=== PATIENT | female | born 1970 | race Caucasian/White ===

== ENCOUNTER 2017-04-15 11:39 | Emergency (ER) | payer BC, SELFPAY ==
[2017-04-15 11:45] VITALS: BP 130/79; PULSE 87; RESP 16; TEMP 36.8; O2SAT 94; BMI 38.7
[2017-04-15 12:17] LABS: Basophils % 0.4 % (0.1-2.0); Eosinophils % 0.2 % (0.1-12.0); Hematocrit 44.1 % (37.0-47.0); Hemoglobin 14.8 g/dL (12.2-16.2); Lymphocytes # 1.9 K/mm3 (0.7-4.5); Lymphocytes % 27.9 K/mm3 (10-50); Mean Corpuscular HGB Conc 33.6 g/dL (31.8-35.4); Mean Corpuscular Hemoglobin 29.6 pg (27.0-31.2); Mean Corpuscular Volume 88.2 fl (81-99); Mean Platelet Volume 8.1 fl (7.4-10.4); Monocytes # 0.5 K/mm3 (0.1-1.0); Monocytes % 6.9 % (1.7-9.3); Neutrophils # 4.3 K/mm3 (1.8-7.8); Neutrophils % 64.5 % (37.0-80.0); Platelet Count 177 K/mm3 (142-424); Red Cell Distribution Width 13.2 % (11.5-17.5); White Blood Count 6.7 K/mm3 (4.8-10.8)
[2017-04-15 12:25] LABS: Alanine Aminotransferase 47 U/L (12-78); Albumin Level 3.5 gm/dL (3.4-5.0); Albumin/Globulin Ratio 0.9 (1.1-1.8); Alkaline Phosphatase 130 U/L (46-116); Anion Gap 13.7 mEq/L (5-15); Aspartate Amino Transferase 29 U/L (15-37); Bilirubin,Total 0.3 mg/dL (0.2-1.0); Blood Urea Nitrogen 8 mg/dL (7-18); Calcium 8.2 mg/dL (8.5-10.1); Carbon Dioxide 26 mmol/L (21.0-32.0); Chloride 105 mmol/L (98-107); Creatinine Clearance Estimated 173 mL/min (0-300); Creatinine,Serum 0.74 mg/dL (0.55-1.02); Estimated Glomerular Filt Rate 84 ml/min (>60); GFR (African American) 102 ML/MIN (>60); Globulin 3.7 gm/dl (1.3-3.2); Glucose 97 mg/dL (74-106); Potassium 3.7 mmoL/L (3.5-5.1); Sodium 141 mmol/L (136-145); Total Protein,Serum 7.2 gm/dL (6.4-8.2)
[2017-04-15 13:29] VITALS: BP 134/72; PULSE 80; RESP 18; O2SAT 97
--- NOTE | 2017-04-15 13:40 | HMH.EDWEAK ---
ED Disposition Clinical Impression: Dehydration Acute bronchitis Qualifiers: Bronchitis organism: unspecified organism Qualified Code(s): J20.9 - Acute bronchitis, unspecified Disposition: Home, Self-Care Condition on Discharge: Good Instructions: Acute Bronchitis, DI for Dehydration -- Adult, DI for Acute Bronchitis Additional Instructions: Please drink plenty of fluids, take the antibiotics prescribed as directed, follow up with PCP if not better within 3-5 days. Prescriptions: Amoxicillin/Potassium Clav [Augmentin 875-125 Tablet] 1 tab PO Q12H #20 tab Referrals: Marija Salas PA [Primary Care Provider] - Time of Disposition: 13:41 - Critical Care Critical Care Time: No Attestation: On 04/15/17, the high probability of a clinically significant, sudden or life threatening deterioration of the following system(s) required my full and direct attention, intervention and personal management. The time I documented below is in addition to time spent performing reported procedures but includes the following listed in this critical care notation. Medical Decision Making - Medical Records Medical records reviewed: Yes: I reviewed the patient's medical records. Vital Signs: 04/15/17 11:45 04/15/17 13:29 04/15/17 13:53 Temperature 98.2 F 98.3 F Temperature Source Oral Pulse Rate 95 H Pulse Rate [Right Radial] 87 80 Respiratory Rate 16 18 18 Blood Pressure 120/66 Blood Pressure [Right Arm] 130/79 134/72 Blood Pressure Mean [Right Arm] 96 92 Blood Pressure Source [Right Arm] Automatic Cuff Automatic Cuff Blood Pressure Position [Right Arm] Sitting Sitting 02 Sat by Pulse Oximetry 94 L 97 Oxygen Delivery Method Room Air Room Air Room Air - Lab Data Lab results reviewed: Yes: I reviewed the patient's lab results. Lab Results 04/15/17 12:00: WBC 6.7, RBC 5.00, Hgb 14.8, Hct 44.1, MCV 88.2, MCH 29.6, MCHC 33.6, RDW 13.2, Plt Count 177, MPV 8.1, Neut % (Auto) 64.5, Lymph % (Auto) 27.9, Latimer % (Auto) 6.9, Eos % (Auto) 0.2, Baso % (Auto) 0.4, Neut # (Auto) 4.3, Lymph # (Auto) 1.9, Latimer # (Auto) 0.5, Eos # (Auto) 0.0, Baso # (Auto) 0.0 04/15/17 12:00: Sodium 141, Potassium 3.7, Chloride 105, Carbon Dioxide 26, Anion Gap 13.7, BUN 8, Creatinine 0.74, Estimated Creat Clear 173, Estimated GFR 84, Est GFR ( Amer) 102, Glucose 97, Calcium 8.2 L, Total Bilirubin 0.3, AST 29, ALT 47, Alkaline Phosphatase 130 H, Total Protein 7.2, Albumin 3.5, Globulin 3.7 H, Albumin/Globulin Ratio 0.9 L Result diagrams: 04/15/17 12:00 04/15/17 12:00 Orders (Tests/Meds): ED MEDICATIONS Discontinued Medications Generic Name Dose Route Start Last Admin Trade Name Freq PRN Reason Stop Dose Admin Sodium Chloride 1,000 mls @ 999 mls/hr 04/15/17 12:00 04/15/17 12:02 Sod Chlor 0.9% 1000ml Bag IV 04/15/17 13:00 999 mls/hr .Q1H1M [facility] Administration - Luke Inquiry Pt receiving controlled substance: No - Reevaluation(s) Time: 13:30 Reevaluation #1: On reevaluation patient appears medically stable, clinically improving additional complaints. Patient to follow-up with PCP if not better, and increase her oral fluid intake. Weakness HPI - General Chief complaint: Weakness Stated complaint: dehydration Romelia Sent to ER Mode of Arrival: Family Vehicle Limitations: No Limitations Description of Symptoms (Recalled from ER Triage Doc. by RN): pt states she is weak and tired. pt sent from [facility] ap[facility] office d/t weakness and possible dehydration. pt flu and strep swab were negative. - History of Present Illness HPI Narrative: Sent by PCP to the emergency room to receive IV fluids, as it was believe patient could be dehydrated. Patient has very vague complaints, sinus pressure, congestion, nonproductive cough, etc. MD Complaint: generalized weakness Onset (ago): day(s) (2) Duration: intermittent - Related Data Previous Rx's Medication Instructions Recorded Amoxicil
[2017-04-15 13:53] VITALS: BP 120/66; PULSE 95; RESP 18; TEMP 36.8; O2SAT 96
== END 2017-04-15 13:54 | disposition home or self-care (01) ==
PROVIDERS: Emergency Provider Emergency Medicine; Family Provider Emergency Medicine; PCP Physician Assistant
DX: E86.0 Dehydration (principal); J20.9 Acute bronchitis, unspecified; K21.9 Gastro-esophageal reflux disease without esophagitis
CPT/HCPCS: 80053; 85025; 96365; 96366; 99282

== ENCOUNTER → 2018-04-22 16:09 | Outpatient (CLI) | payer BC, SELFPAY ==
--- NOTE | 2018-04-22 16:12 | MM_ITS ---
MM Dig screening mamm BI w/CAD CAD Screening COMPARISON: Digital mammograms with CAD 12/19/2015 INDICATION: There is no personal or family history of breast cancer TECHNIQUE: Standard CC and MLO images were obtained. R2 CAD reviewed. FINDINGS: Moderate scattered fibroglandular densities are seen in the central portions of both breast and the findings are bilateral and symmetrical. There is a stable nodular density near the axillary tail left breast likely a low-lying intramammary node. There is no new or suspicious lesion in either breast and there are no suspicious microcalcifications. There are multiple small nodes in both axilla. IMPRESSION: Fibrofatty parenchyma no suspicious lesion seen BI-RADS Category: 2 Benign Finding(s) RECOMMENDED FOLLOW-UP: 1YR - 1 YEAR FOLLOW-UP (A letter has been sent to the patient regarding results of the study.)
== END ==
PROVIDERS: PCP Nurse Practitioner Family; Visit Provider Nurse Practitioner Family
DX: Z12.31 Encounter for screening mammogram for malignant neoplasm of breast (principal)
CPT/HCPCS: 77067

== ENCOUNTER → 2018-10-26 19:35 | Outpatient (CLI) | payer BC, SELFPAY ==
--- NOTE | 2018-10-26 20:05 | XR_ITS ---
PROCEDURE: XR LUMBAR SPINE 2-3V CLINICAL INDICATION: BACK PAIN COMPARISON: No exams were available for comparison FINDINGS: Normal alignment. No fracture or dislocation. Mild degenerative disc disease L5-S1 IMPRESSION: Degenerative disc disease L5-S1 Dictated by: Yong Valdez MD 10/27/2018 04:37 Signed by: <Electronically signed by Yong Valdez MD in [place]> 10/27/2018 04:37
--- NOTE | 2018-10-26 20:05 | XR_ITS ---
PROCEDURE: XR HIP RT 2-3V W/PELVIS CLINICAL INDICATION: RIGHT HIP PAIN COMPARISON: No exams were available for comparison FINDINGS: There is a well-circumscribed lucency is present through the roof of the acetabulum posteriorly and may be due to ununited ossification center. The joint space is well preserved. No lytic or blastic change. No significant degenerative change. IMPRESSION: No definite acute finding. 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
--- NOTE | 2018-10-26 20:05 | XR_ITS ---
PROCEDURE: XR THORACIC SPINE 3V CLINICAL INDICATION: BACK PAIN COMPARISON: No exams were available for comparison FINDINGS: Normal alignment. No fracture or dislocation. There is mild degenerative disc disease in the midthoracic spine. No fracture or dislocation. No lytic or blastic change IMPRESSION: Degenerative changes midthoracic spine Dictated by: Yong Valdez MD 10/27/2018 04:38 Signed by: <Electronically signed by Yong Valdez MD in [facility]> 10/27/2018 04:38
== END ==
LOC: RAD 19:36
PROVIDERS: PCP Emergency Medicine; Visit Provider Nurse Practitioner Family
DX: M54.5 Low back pain (principal); M54.6 Pain in thoracic spine; M25.511 Pain in right shoulder
CPT/HCPCS: 72072; 72100; 73502

== ENCOUNTER 2021-03-10 10:38 | Emergency (ER) | payer BC, SELFPAY ==
[2021-03-10 12:02] VITALS: BP 146/104; PULSE 70; RESP 18; TEMP 36.7; O2SAT 98; BMI 36.5
--- NOTE | 2021-03-10 12:11 | CA_ITS ---
FINAL REPORT TECHNIQUE: extremity venous duplex was performed with augmentation and compression. CLINICAL HISTORY: leg pain/swelling. Patient denies trauma. Distal left leg and calf have been hurting since Wednesday. smoker and family history of DVT and PE. FINDINGS: Proper flow is seen throughout the deep venous system. There is no evidence of deep venous thrombosis. IMPRESSION: No evidence of deep vein thrombosis within the left lower extremity. Reviewed, Interpreted and Dictated by Vignesh Oh MD Transcribed by Leatha Sethi Authenticated by Vignesh Oh MD on 03/10/2021 02:19:49 PM [facility]
--- NOTE | 2021-03-10 13:09 | HMH.EDUTC ---
[facility] [place] Clinical Impression: Cellulitis Qualifiers: Site of cellulitis: extremity Site of cellulitis of extremity: lower extremity Laterality: left Qualified Code(s): L03.116 - Cellulitis of left lower limb Disposition: Home, Self-Care Condition on Discharge: Good Instructions: DI for Cellulitis -- Adult, Cellulitis, Cephalexin Additional Instructions: Take medication as prescribed Follow up with Family Doctor if symptoms continued or worsen Return if needed Straight to ER if any life threatening symptoms Prescriptions: cephALEXin [cephALEXin 500mg capsule*] 500 mg PO Q6H 7 Days #28 cap Transmission Status: Received by [facility] Referrals: Dhruv Tello MD [Primary Care Provider] - Forms: Work/School Release Time of Disposition: 14:00 Medical Decision Making - Luke Inquiry Pt receiving controlled substance: No Luke was queried for this patient: No Vital Signs: 03/10/21 12:02 03/10/21 14:05 Temperature 98.0 F 98.0 F Temperature Source Temporal Artery Scan Pulse Rate 70 Pulse Rate [Right Brachial] 70 Respiratory Rate 18 18 Blood Pressure 146/104 H Blood Pressure [Right Arm] 146/104 H Blood Pressure Mean [Right Arm] 118 Blood Pressure Source [Right Arm] Automatic Cuff Blood Pressure Position [Right Arm] Sitting 02 Sat by Pulse Oximetry 98 Oxygen Delivery Method Room Air - US Data US Images: Lower Extremity ED US Reviewed: Yes: I have viewed radiologist's interpretation Preliminary Findings: Normal/NAD Findings Narrative: IMPRESSION: No evidence of deep vein thrombosis within the left lower extremity. Medical Decision Narrative: out of room for Venous Doppler [facility] [place] HPI - General Stated complaint: left leg pain, possible blot clot Time Seen by Provider: 03/10/21 13:09 Mode of Arrival: Ambulatory Source of Information: Patient Limitations: No Limitations Description of Symptoms (Recalled from Triage Doc. by RN): possible blood clot. left leg warm to touch, red, swollen and has a knot HEENT Symptoms (Recalled from RN notes): No Resp Symptoms (Recalled from RN notes): No Skin Symptoms (Recalled from RN notes): Yes MS Symptoms (Recalled from RN notes): No Functional Status (Recalled from RN notes): yes - History of Present Illness Provider Complaint: Patient states that she noticed over the weekend that she had some redness to her left lower leg and felt warm to the touch States that she has continued to have redness and mild swelling to left lower leg and has a family history of DVT and wanted to get checked for blood clot - Related Data Home Medications Medication Instructions Recorded Confirmed ALPRAZolam [Xanax 0.5mg tab] 0.5 mg PO DAILYP PRN 03/10/21 03/10/21 Fluoxetine HCl [Prozac 20mg 20 mg PO DAILY 03/10/21 03/10/21 Capsule] Previous Rx's Medication Instructions Recorded cephALEXin [cephALEXin 500mg 500 mg PO Q6H 7 Days #28 cap 03/10/21 capsule*] Allergies Allergy/AdvReac Type Severity Reaction Status Date / Time No Known Allergies Allergy Verified 03/10/21 12:17 - Worker's Comp Is this a Worker's Comp case?: No Is this an [facility] Worker's Comp?: No Is this a [place] Worker's Comp?: No H History - Hepatitis A Screen Drug use history?: No High risk sexual behaviors?: No History of sexually transmitted infection?: No Currently employed?: No Childcare worker?: No Do you have indoor plumbing?: Yes Do you have electricity?: Yes Attestation statement:: This patient has been screened for Hepatitis A risk factors. I have reviewed the patient's past medical history: Yes Medical History: Reports:: Gastroesophageal Reflux Disease(GERD) Denies:: Cancer, Diabetes Mellitus Type 1, Diabetes Mellitus Type 2, MRSA Other Medical History: Reports: Arthritis Comment: Does not take Flu shot Laterality Cases: Bilateral: Tonsillectomy Amputation: No Fractures: Yes (right leg/arm) - Social History Smoking Statu
[2021-03-10 14:05] VITALS: BP 146/104; PULSE 70; RESP 18; TEMP 36.7; O2SAT 98
== END 2021-03-10 14:11 | disposition home or self-care (01) ==
PROVIDERS: Emergency Provider Nurse Practitioner; PCP Emergency Medicine
DX: L03.116 Cellulitis of left lower limb (principal); K21.9 Gastro-esophageal reflux disease without esophagitis; F17.210 Nicotine dependence, cigarettes, uncomplicated
CPT/HCPCS: 93971; 99202; G0463

== ENCOUNTER → 2022-06-30 09:31 | Outpatient (POV) | payer BC, SELFPAY | PROVIDERS: Visit Provider Dermatology | DX: Z00.00 Encounter for general adult medical examination without abnormal findings (principal) ==

== ENCOUNTER 2022-08-13 17:00 | Outpatient (RCR) | payer OTHER, SELFPAY ==
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
--- NOTE | 2022-08-11 18:02 | HMH.RHREAS ---
Rehab Reassessment Rehab OP Re-assessment Start: 08/11/22 16:52 Freq: Status: Active Protocol: Document 08/11/22 16:52 DARLENE (Rec: 08/11/22 18:01 DARLENE [id number]) E-signed By Delaney Barajas PT Rehab Re-assessment Subjective Subjective Pt reports she continues to have central low back pain R>L with intermittent numbness of the right thigh with standing /walking >10 that abolishes with rest. Pt denies distal paresthesia of the espinosa or ankle/foot. Pt reports she continues to have difficulty with driving, ADLs and sleeping due to pain. Pt reports pain at worst as 9/10 within the last week. Pt reports she only takes Gabapentin as needed but does not like to take it. Pt reports she had injections in both hips on 07/30/22 during her followup visit. Pt also reports they ordered an MRI but she has not yet received a call to schedule one. Pt reports often her back is worse after PT especially following one trial of prone mechanical traction. Pt reports she is compliant with her HEP and the piriformis stretch hurts during but helps following. Pt reports she started upper body weight lifting this past week in a reclined position which she states she is tolerating well, states she quits if the back starts to bother her. Objective Objective Notes Lumbar AROM: flex 80, 20 ext, LF 15 RLE MMT: hip flex 4-/5, knee ext5/5, knee flex 4/5, hip add /abd 4/5, ankle DF 5/5 Assessment Progress Assessment Progressing as Expected Assessment Notes Pt has attended 4 PT session including the initial evaluation. Pt has low tolerance to therapeutic
== END 2022-08-13 17:05 | disposition home or self-care (01) ==
LOC: PT 17:00
PROVIDERS: PCP Emergency Medicine; Visit Provider Emergency Medicine
DX: M54.9 Dorsalgia, unspecified (principal); M54.50 Low back pain, unspecified
CPT/HCPCS: 97010; 97012; 97014; 97110; 97140; 97163; 97164; 97530; G0283

== ENCOUNTER 2022-08-17 10:10 | Emergency (ER) | payer OTHER, SELFPAY ==
[2022-08-17 10:16] VITALS: BP 125/57; PULSE 78; RESP 16; TEMP 37.2; O2SAT 100; BMI 38.2
[2022-08-17 10:31] VITALS: BP 129/89; PULSE 68; RESP 20; O2SAT 99
--- NOTE | 2022-08-17 11:02 | CT_ITS ---
FINAL REPORT TECHNIQUE: Axial imaging of the lumbar spine was obtained without contrast. Reformatted images were also obtained and reviewed.This study was performed with techniques to keep radiation doses as low as reasonably achievable, (ALARA). Individualized dose reduction techniques using automated exposure control or adjustment of mA and/or kV according to the patient's size were employed. CLINICAL HISTORY: back pain FINDINGS: There is no acute fracture or subluxation. The vertebra are normal height. There is leftward curvature. Vacuum disc phenomenon is seen at L5-S1. Facets are properly aligned. Prevertebral soft tissues unremarkable. L1-2: Unremarkable. L2-3: Annular disc bulge. L3-4: Annular disc bulge. L4-5: Annular disc bulge with mild bilateral neural foraminal narrowing. L5-S1: Annular disc bulge and osteophytes with mild bilateral neural foraminal narrowing. IMPRESSION: No acute bony abnormality. Mild bilateral neural foraminal narrowing at L4-5 with annular disc bulges throughout. Reviewed, Interpreted and Dictated by Facundo Berger III, MD Transcribed by Thuy Knight Authenticated and [facility]
--- NOTE | 2022-08-17 11:03 | HMH.EDGENADL ---
Discharge Plan Disposition Patient Disposition: Home, Self-Care Condition: Fair Prescriptions Prescriptions: New prednisone 50 mg tablet 50 mg PO DAILY 7 Days Qty: 7 0RF No Action hydrocodone-acetaminophen 5-325 mg tablet 1 tab PO BID Qty: 60 0RF diclofenac sodium 1 % gel 2 g topical QID Qty: 100 0RF Rx Instructions: apply to single elbow, wrist or hand; for hand includes palm/fingers/back of hand lidocaine 5 % adhesive patch,medicated 1 patch topical DAILY Qty: 30 0RF Rx Instructions: leave on most painful area for up to 12 hrs alprazolam 0.5 mg tablet 0.5 mg PO BID PRN (Reason: Anxiety) Qty: 60 1RF fluoxetine [Prozac] 40 mg capsule 40 mg PO DAILY Qty: 30 1RF gabapentin 100 mg capsule 100 mg PO BID Qty: 60 1RF Referrals Follow up/Referrals: Dhruv Tello MD [Primary Care Provider] - See instructions Clinical Impressions Clinical Impression: Lumbar radicular pain Instructions Patient Instructions: DI for Low Back Pain Discharge ED Provider: Esvin Carballo General Adult [facility] General Chief complaint: Back Pain/Injury Stated complaint: BACK PAIN Time Seen by Provider: 08/17/22 10:30 Mode of Arrival: Wheelchair Source of Information: Patient Limitations: No Limitations Description of Symptoms (Recalled from ER Triage Doc. by RN): pt to the ED with chronic lumbar pain that flared up this morning on her way to work. pt reports she has had chronic lumbar pain since march and is being treated by PT at this time. pt reports the pain is a sharp shooting pain that raidates into her right hip with recent bowel incontinence a few days ago. pt denies any new injury History of Present Illness HPI narrative: This is a 52-year-old white female with history of chronic back pain who is presently getting physical therapy patient states over the course of the past 2 days her pain has gotten worse. Patient said the pain starts mostly in her right hip and radiates to her right thigh. There is no new trauma. Patient denied any saddle paresthesias any foot drop. Patient says she did have a recent incidence of bowel incontinence a few days ago. Patient normally walks with a cane but said over the course of the past day the pain was too much that she could not walk even with her cane. Related Data Previous Rx's Medication Instructions Recorded hydrocodone 5 mg-acetaminophen 325 1 tab PO BID #60 tabs 03/18/22 mg tablet alprazolam 0.5 mg tablet 0.5 mg PO BID PRN Anxiety #60 tabs 05/11/22 diclofenac sodium 1 % topical gel 2 g topical QID #100 grams 05/27/22 lidocaine 5 % topical patch 1 patch topical DAILY #30 ea 05/27/22 fluoxetine 40 mg capsule (Prozac) 40 mg PO DAILY #30 caps 06/15/22 gabapentin 100 mg capsule 100 mg PO BID #60 caps 07/30/22 prednisone 50 mg tablet 50 mg PO DAILY 7 days #7 tabs 08/17/22 Allergies Allergy/AdvReac Type Severity Reaction Status Date / Time No Known Allergies Allergy Verified 07/30/22 08:49 [facility] Disclaimer: The information contained in this section may have been updated after the patient was seen, as this information can be updated by other users. Medical History Back Pain Generalized anxiety disorder Grief at loss of child Surgical History Hx of appendectomy Tubal ligation status Social History Smoking Status: Never smoker alcohol intake: never substance use type: marijuana current occupational status: other Travel in the last 8 weeks: None number of children: 1 ROS Obtained: Yes All systems reviewed & no additional complaints except as documented Skin no rash or lesions HEENT no runny nose sore throat Pulmonary no cough or shortness of breath Cardiovascular no chest pain pressure heaviness GI no abdominal pain nausea or vomiting
--- NOTE | 2022-08-17 11:45 | PC.NURSE ---
rounded on patient, no needs at this time. Call light within reach
--- NOTE | 2022-08-17 13:43 | PC.NURSE ---
contacted rad to check on status of CT result- states Ct is locked
[2022-08-17 14:50] VITALS: BP 132/81; PULSE 76; RESP 17; TEMP 36.7; O2SAT 96
== END 2022-08-17 14:55 | disposition home or self-care (01) ==
PROVIDERS: Emergency Provider Emergency Medicine; PCP Emergency Medicine
DX: M54.16 Radiculopathy, lumbar region (principal); F41.1 Generalized anxiety disorder
CPT/HCPCS: 72131; 96372; 96374; 99284

== ENCOUNTER → 2022-08-20 15:12 | Outpatient (CLI) | payer OTHER, SELFPAY ==
--- NOTE | 2022-08-20 15:12 | MR_ITS ---
FINAL REPORT CLINICAL HISTORY: back pain. NUMBNESS IN RIGHT THIGH. RIGHT SIDED GROIN PAIN. NO RECENT INJURY OR TRAUMA FINDINGS: Multiplanar MR imaging of the lumbar spine was performed without contrast. On the sagittal T2-weighted images, disc degeneration is seen at multiple levels. There are mild endplate changes at several levels. Note is made of several hemangiomas. The vertebral alignment is normal. There is no evidence of fracture. The conus has an unremarkable appearance. T12-L1: There is no significant canal stenosis or neural foraminal narrowing. L1-2: There is no significant canal stenosis or neural foraminal narrowing. L2-3: An annular bulge is present. There is no significant canal stenosis or neural foraminal narrowing. L3-4: An annular bulge is present. There is a small central disc protrusion with mild right neural foraminal narrowing. L4-5: An annular bulge is present. There is a small central disc protrusion with mild left neural foraminal narrowing. L5-S1: An annular bulge is present. Facet arthropathy and osteophytes are present. There is mild left neural foraminal narrowing. IMPRESSION: Multilevel degenerative disc disease and spondylosis. Small central disc protrusions at L3-4 and L4-5. Reviewed, Interpreted and Dictated by Facundo Berger III, MD Transcribed by Amy Roper Authenticated and [facility]
== END ==
LOC: RAD 15:12
PROVIDERS: PCP Emergency Medicine; Visit Provider Emergency Medicine
DX: M54.9 Dorsalgia, unspecified (principal); M54.50 Low back pain, unspecified
CPT/HCPCS: 72148; 76376

== ENCOUNTER 2024-05-15 08:30 | Emergency (ER) | payer OTHER, SELFPAY ==
[2024-05-15] VITALS (12 sets, daily range): BP systolic 119–187; BP diastolic 68–146; PULSE 62–101; RESP 13–20; TEMP 36.3–36.7; O2SAT 93–99; BMI 38.0
--- NOTE | 2024-05-15 08:52 | ECG_ITS ---
APPROVED REPORT Exam: Resting ECG HR:70 bpm ECG Measurements Heart Rate 70 AXES DE 147 P 38 QRSd 94 QRS 21 QT 406 T 48 QTc 426 Conclusion SINUS RHYTHM NORMAL ECG Electronically signed by : NAI WAKEFIELD, 05/19/2024 10:22:49
--- NOTE | 2024-05-15 08:52 | XR_ITS ---
FINAL REPORT CLINICAL HISTORY: Epigastric pain, lower chest pain COMPARISON: None FINDINGS: SINGLE VIEW CHEST The heart size is within normal limits. The mediastinum is within normal limits. There are slight chronic appearing changes in the lung yee bilaterally without acute infiltrate. There is no evidence of pneumothorax. The bony thorax is intact. IMPRESSION: Chronic appearing changes in the lung yee bilaterally without acute infiltrate. Reviewed, Interpreted and Dictated by Vignesh Oh MD Transcribed by Ilda Hansen Authenticated and [facility]
--- NOTE | 2024-05-15 08:52 | CT_ITS ---
FINAL REPORT TECHNIQUE: After the administration of oral and intravenous contrast, axial images were obtained through the abdomen and pelvis by computed tomography. The study was performed with techniques to keep radiation dose as low as reasonably achievable, (ALARA). Individual dose reduction techniques using automated exposure control or adjustment of mA and/or kV according to the patient's size were employed. CLINICAL HISTORY: RUQ/epiastric abdominal pain, N/V COMPARISON: None FINDINGS: Abdomen: There is a 5 mm nodule in the right middle lobe, best seen on image #1 of series 3. Hepatomegaly is present, the liver measuring 22 centimeters in size. The gallbladder is present, with debris in the dependent portion of the gallbladder. The spleen, pancreas, adrenals and kidneys appear unremarkable. The aorta is normal in caliber. There is no free fluid or adenopathy. Pelvis: The appendix is not identified. There is mucosal thickening in the terminal ileum, that may represent the sequela of a remote infectious process, as there is little surrounding inflammatory change. Would correlate with any history of Crohn's disease. The uterus is anteverted. The urinary bladder is incompletely distended. There is no free fluid or adenopathy. IMPRESSION: Hepatomegaly as described. Mucosal thickening in the terminal ileum, that may represent a sequela of a prior infectious process. Would correlate with any history of inflammatory bowel disease. 5 mm right middle lobe nodule best seen on image 1 of series 3, recommend 1 year follow-up. Reviewed, Interpreted and Dictated by Vignesh Oh MD Transcribed by Ilda Hansen Authenticated and . [facility]
--- NOTE | 2024-05-15 08:53 | ED_ITS ---
Discharge Plan Disposition Patient Disposition: Home, Self-Care Condition: Good Prescriptions Prescriptions: New prednisone 20 mg tablet 20 mg PO BID 5 Days Qty: 10 0RF ondansetron 4 mg tablet,disintegrating 4 mg PO Q8H PRN (Reason: nausea and vomiting) 4 Days Qty: 12 0RF No Action fluoxetine 40 mg capsule 40 mg PO DAILY alprazolam 0.5 mg tablet 0.5 mg PO NEEDED PRN (Reason: anxiety ) Patient Comments: TAKE 1 TABLET BY MOUTH TWICE A DAY NEEDED FOR ANXIETY Referrals Follow up/Referrals: Lazaro Rick MD [Staff Physician] - See instructions Rah Kincaid APRN [Primary Care Provider] - See instructions Hanny Peterson APRN [Staff Physician] - See instructions Activity Restrictions/Add. Instructions Additional Instructions/Restrictions: You are being referred to a cardiac catheterization technologist, Dr. Phipps, for your chronic constipation. You are also being prescribed a course of steroids for some inflammation in your intestines. Take this as prescribed. You are also being prescribed Zofran to help with nausea and vomiting. Take this as prescribed. You are being referred to family medicine to establish care with her primary care physician. To establish appointments with both of these specialties, and call them at the numbers below. If you develop any new or worsening symptoms, or if you become concerned for your health for any reason, return to the emergency department for evaluation. There was also an incidentally found lung nodule on your CT scan. Follow-up with your primary care physician regarding this. Gastroenterology: [phone] Family medicine: [phone] Clinical Impressions Clinical Impression: Abdominal pain, Nausea & vomiting, Incidental lung nodule Stand Alone Forms Stand Alone Forms: Work/School Release Instructions Patient Instructions: DI for Acute Abdominal Pain Print Language Print Language: Wolof Discharge ED Provider: Alberto Andre Adult [facility] General Chief complaint: Abdominal Pain Stated complaint: abd pain Time Seen by Provider: 05/15/24 08:46 Mode of Arrival: Ambulatory Source of Information: Patient Description of Symptoms (Recalled from ER Triage Doc. by RN): pt presents to the er for upper abdominal pain, states it started around 2:30 this morning, states it is a constant, burning/ aching pain rating it 9/10, also reports nausea and vomiting, denies diarrhea, took zofran, tums, and pepto bismol around 2:45 and puked it all back up with no relief, hx appy History of Present Illness HPI narrative: Jemal Pabon is a 53-year-old female with a history of esophageal dysmotility, chronic back pain secondary to arthritis who presents to the emergency department for abdominal pain, nausea and vomiting. Patient states that she was in her normal state of health and then at 230 this morning was woken up with severe epigastric and right upper quadrant abdominal pain followed by multiple episodes of nonbilious nonbloody vomiting. She denies any fevers and states that nobody else has been ill. She reports that she has a history of constipation but has had normal bowel movements recently and her last bowel movement was this morning, denying any diarrhea or bloody stools or melena. She has a history of an appendectomy but no other abdominal surgeries. She denies any chest pain. She describes abdominal pain as burning. She denies any dysuria or hematuria. Related Data Home Medications ?Medication ?Instructions ?Recorded ?Confirmed alprazolam 0.5 mg tablet 0.5 mg PO NEEDED PRN anxiety 05/15/24 05/15/24 fluoxetine 40 mg capsule 40 mg PO DAILY 05/15/24 05/15/24 Previous Rx's ?Medication ?Instructions ?Recorded ondansetron 4 mg disintegrating 4 mg PO Q8H PRN nausea and 05/15/24 tablet vomiting 4 days #12 tabs prednisone 20 mg tablet 20 mg PO BID 5 days #10 tabs 05/15/24 Allergies Allergy/AdvReac Type Severity Reaction Status Date / Time sulfamethoxazole (From Allergy Hives Verified 05/15/24 08:56 Bactrim) trimethoprim (From Bactrim) Allergy Hives Verified 05/15/24 08:56 [facility] Disclaimer: The information contained in this section may have been updated after the patient was seen, as this information can be updated by other users. Medical History Back Pain Generalized anxiety disorder Grief at loss of child Surgical History Hx of appendectomy Tubal ligation status Social History Smoking Status: Current every day smoker tobacco type: cigarettes packs per day: 1 alcohol intake: never substance use type: marijuana current occupational status: other Travel in the last 8 weeks: None number of children: 1 Have you lived/traveled outside US in past 30 days?: No Contact w/someone who lives/traveled outside US past 30 days?: No Exposure to someone with infectious disease in past 14 days?: No Do you have a fever (greater than 100.4 F or 38 C)?: No Have you tested positive for COVID-19: No Exposed to someone with COVID-19 in past 14 days?: No Do you have a sore throat?: No Do you have a cough?: No Do you have any weakness?: No Do you have any diarrhea?: No Are you experiencing any unusual bleeding?: No Do you have any muscle aches/pain?: No Do you have any abdominal pain?: Yes Are you experiencing loss of taste or smell?: No Other Medical History Have you received the Flu Vaccine for this season: No Have you received the Pneumonia Vaccine: No ROS Obtained: Yes Systems reviewed as appropriate & no additional complaints except as documented Physical Exam General General appearance: alert and in no apparent distress Comment: appears uncomfortable but non-toxic Head Head exam: atraumatic Eye Eye exam: Present normal appearance ENT ENT exam: Present normal external ear exam Neck Neck exam: Present full ROM Chest Chest inspection: Present symmetric chest wall rise Respiratory Respiratory exam: Present normal lung sounds bilaterally; Absent respiratory distress Cardiovascular Cardiovascular exam: Present regular rate and normal rhythm Abdominal Exam Abdominal exam: Present soft and tenderness (Epigastric, right upper quadrant and left upper quadrant); Absent guarding Extremities Exam Extremities exam: Present normal inspection Back Exam Back exam: Present normal inspection Neurological Exam Neurological exam: Present alert and oriented X3 Psychiatric Psychiatric exam: Present normal affect Skin Skin exam: Present warm and dry Medical Decision Making Medical Records Screening: Per USPSTF and CDC recommendations, given the prevalence of disease in our region, it is our hospital?s policy to screen for HIV and viral Hepatitis for all patients aged 18 and over and those with ongoing risk factors. Luke Inquiry Pt receiving controlled substance: No Vital Signs: 05/15/24 08:46 05/15/24 09:01 05/15/24 09:15 Temperature 97.4 F L Temperature Source Oral Pulse Rate 85 69 Pulse Rate [Right Radial] 65 Respiratory Rate 18 18 Blood Pressure 173/146 H 182/137 H Blood Pressure [Right Arm] 164/106 H Blood Pressure Mean 154 Blood Pressure Mean [Right Arm] 125 Blood Pressure Source Blood Pressure Source [Right Arm] Automatic Cuff Blood Pressure Position Blood Pressure Position [Right Arm] Sitting 02 Sat by Pulse Oximetry 96 99 97 Oxygen Delivery Method Room Air Room Air Room Air 05/15/24 09:31 05/15/24 09:46 05/15/24 10:01 Temperature Temperature Source Pulse Rate 62 71 83 Pulse Rate [Right Radial] Respiratory Rate 20 13 18 Blood Pressure 187/101 H 165/99 H 152/70 H Blood Pressure [Right Arm] Blood Pressure Mean Blood Pressure Mean [Right Arm] Blood Pressure Source Blood Pressure Source [Right Arm] Blood Pressure Position Blood Pressure Position [Right Arm] 02 Sat by Pulse Oximetry 97 98 96 Oxygen Delivery Method Room Air Room Air Nasal Cannula 05/15/24 10:15 05/15/24 10:21 05/15/24 10:30 Temperature Temperature Source Pulse Rate 81 101 H 71 Pulse Rate [Right Radial] Respiratory Rate 16 16 16 Blood Pressure 139/120 H 135/70 131/68 Blood Pressure [Right Arm] Blood Pressure Mean Blood Pressure Mean [Right Arm] Blood Pressure Source Blood Pressure Source [Right Arm] Blood Pressure Position Blood Pressure Position [Right Arm] 02 Sat by Pulse Oximetry 93 L 94 L 95 Oxygen Delivery Method Room Air Room Air Room Air 05/15/24 10:45 05/15/24 11:00 05/15/24 11:20 Temperature 98.0 F Temperature Source Oral Pulse Rate 82 76 76 Pulse Rate [Right Radial] Respiratory Rate 15 16 Blood Pressure 134/71 125/69 119/94 H Blood Pressure [Right Arm] Blood Pressure Mean 83 Blood Pressure Mean [Right Arm] Blood Pressure Source Automatic Cuff Blood Pressure Source [Right Arm] Blood Pressure Position Sitting Blood Pressure Position [Right Arm] 02 Sat by Pulse Oximetry 95 96 Oxygen Delivery Method Room Air Room Air Room Air Lab Data Lab Results 05/15/24 08:36: Urine Color Yellow, Urine Appearance Clear, Urine pH 6.5, Ur Specific [place] 1.025, Urine Protein Negative, Urine Glucose (UA) Negative, Urine Ketones Negative, Urine Blood Trace A, Urine Nitrate Negative, Urine Bilirubin Negative, Urine Urobilinogen 0.2, Ur Leukocyte Esterase Negative, Urine RBC Occasional, Urine WBC None, Ur Squamous Epith Cells 5-10, Urine Bacteria Trace, Hyaline Casts Occ 05/15/24 08:44: WBC 14.9 H, RBC 5.37, Hgb 16.4 H, Hct 47.1 H, MCV 87.7, MCH 30.5, MCHC 34.8, RDW 12.7, Plt Count 470 H, MPV 9.7, Neut % (Auto) 81.9 H, Lymph % (Auto) 14.8, [place] % (Auto) 1.9, Eos % (Auto) 0.3, Baso % (Auto) 0.6, Neut # (Auto) 12.2 H, Lymph # (Auto) 2.2, [place] # (Auto) 0.3, Eos # (Auto) 0.1, Baso # (Auto) 0.1, Sodium 139, Potassium 4.2, Chloride 107, Carbon Dioxide 24, Anion Gap 12.2, BUN 15, Creatinine 0.70, Estimated Creat Clear 166, Estimated GFR 88, Est GFR ( Amer) 106, Glucose 141 H, Calcium 9.8, Total Bilirubin 0.4, AST 44 H, ALT 60, Alkaline Phosphatase 152 H, Troponin I < 0.01, Total Protein 8.2, Albumin 5.0, Globulin 3.2, Albumin/Globulin Ratio 1.6, Lipase 68, Serum HCG, Qual Negative, HCV Ab KENNY w/Rflx PCR Qn Negative, HIV Ag/Ab Combo Qual Negative 05/15/24 09:02: VBG pH 7.39, VBG pCO2 38.1, VBG pO2 29.5, VBG HCO3 22.5 L, VBG Total CO2 23.7, VBG O2 Saturation 61.0, VBG Base Excess -2.4, VBG Lactic Acid 2.4 H 05/15/24 08:44 05/15/24 08:44 Orders (Tests/Meds): ED MEDICATIONS Discontinued Medications Generic Name Dose Route Start Last Admin Trade Name Freq PRN Reason Stop Dose Admin Lactated Ringer's 1,000 mls @ 999 mls/hr 05/15/24 08:56 05/15/24 09:06 Lactated Ringer's 1000 Ml Bag IV 05/15/24 09:56 999 mls/hr .Q1H1M ONE Administration Iopamidol 75 ml 05/15/24 09:06 05/15/24 09:07 Iopamidol-370 (76%);100ml Bottle IV 05/15/24 09:07 75 ml ONCE ONE Administration Ketorolac Tromethamine 15 mg 05/15/24 09:22 05/15/24 09:27 Ketorolac 30mg/Ml Vial IV 05/15/24 09:23 15 mg ONCE ONE Administration Morphine Sulfate 4 mg 05/15/24 08:52 05/15/24 08:56 Morphine 4mg/Ml Syringe IV 05/15/24 08:53 4 mg ONCE ONE Administration Ondansetron HCl 4 mg 05/15/24 08:52 05/15/24 08:56 Ondansetron 4mg/2ml Vial IV 05/15/24 08:53 4 mg ONCE ONE Administration Sodium Chloride 10 ml 05/15/24 09:06 05/15/24 09:07 Sodium Chloride 0.9% 10ml Syr (Rad Only) IV 06/14/24 09:05 10 ml NEEDED PRN Administration Maintain IV Site ORDERS Category Date Time Status CT abdomen pelvis w con Stat Cat Scan 05/15/24 08:52 Completed CXR --portable [XR chest portable] Stat Exams 05/15/24 08:52 Completed CBC w/Auto Diff [Complete Blood Count Auto Diff] Stat Lab 05/15/24 08:44 Completed CMP [Comprehensive Metabolic Panel] Stat Lab 05/15/24 08:44 Completed HIV Combo Stat Lab 05/15/24 08:44 Completed Hepatitis C Ab Qual. W/ RFX Stat Lab 05/15/24 08:44 Completed Lipase Stat Lab 05/15/24 08:44 Completed Serum [HCG Qualitative, Serum] Stat Lab 05/15/24 08:44 Completed Troponin I Stat Lab 05/15/24 08:44 Completed UA [Urinalysis and Microscopic] Stat Lab 05/15/24 08:36 Completed VBG [Venous Blood Gas] Stat RT 05/15/24 09:02 Completed ECG Data Tracing #1: I reviewed this ECG and interpreted as documented below: EKG interpreted by me personally. Normal sinus rhythm ventricular rate of [address] elevation or depression. QTc normal at 426, [place] interval normal at 147 Medical Decision Narrative: Jemal Pabon is a 53-year-old female with a history of esophageal dysmotility, chronic back pain secondary to arthritis who presents to the emergency department for abdominal pain, nausea and vomiting. Patient states that she was in her normal state of health and then at 230 this morning was woken up with severe epigastric and right upper quadrant abdominal pain followed by multiple episodes of nonbilious nonbloody vomiting. She denies any fevers and states that nobody else has been ill. She reports that she has a history of constipation but has had normal bowel movements recently and her last bowel movement was this morning, denying any diarrhea or bloody stools or melena. She has a history of an appendectomy but no other abdominal surgeries. She denies any chest pain. She describes abdominal pain as burning. She reports occasional alcohol use but is not drank recently. She denies any weight loss medication she denies any dysuria or hematuria. On arrival, patient is hypertensive with blood pressure 182/37, heart rate within normal limits, breathing comfortably on room air, afebrile. Physical exam, stated above, revealed an uncomfortable. Female in no respiratory distress. Cardiopulmonary exam is unremarkable. Abdomen is soft and nonperitoneal but she does have tenderness to palpation in the right upper quadrant, epigastric and left upper quadrants with guarding in these areas. She appears mildly dehydrated. Differential diagnosis includes, but is not limited to: Acute pancreatitis, cholecystitis, symptomatic cholelithiasis, bowel obstruction, GERD, peptic ulcer disease, ACS, pneumonia, among others Workup in the emergency department included: Chest x-ray, CT abdomen pelvis with IV contrast, lipase, CMP, CBC with differential, urinalysis, urine test, VBG with lactic acid. Symptomatically patient was treated with 4 mg of IV morphine, which helped her symptoms some but did not give significant improvement. She was then given 15 mg of IV Toradol. Patient was also treated with 4 mg of IV Zofran and 1 L lactated ringer. Chest x-ray interpreted by me personally demonstrated no acute intrathoracic findings. See radiology report for details. CT abdomen pelvis was interpreted by me personally and demonstrated no bowel obstruction, no fat stranding around the pancreas. Radiology noted there is hepatomegaly and mucosal thickening of the terminal ileum that may represent sequela of prior infectious process. Will correlate with any history of inflammatory bowel disease. She also has She denies any family history of inflammatory bowel disease but does note the constipation and esophageal issues run in her family. She is being referred to GI and Family Medicine for PCP. She has an incidentally found lung nodule and we will have her follow-up with her primary care physician regarding this for monitoring. On reassessment, she reported significant improvement in her symptoms, which are felt likely to be from gastritis versus undiagnosed inflammatory bowel disease given patient's CT imaging. She is being sent home with a prescription for prednisone as well as Zofran. return precautions were given. All questions were answered. She demonstrated understanding and was in agreement this plan. She was then discharged from the emergency department in stable condition. Critical Care Critical Care Time Critical Care Time: No
[2024-05-15] MEDS: MORPHINE 4MG/ML SYRINGE 4 MG IV (08:56)
[2024-05-15] MEDS: ONDANSETRON 4MG/2ML VIAL 4 MG IV (08:56)
--- NOTE | 2024-05-15 09:02 | PC.NURSE ---
notified Patrizia in respiratory of vbg order
[2024-05-15 09:04] LABS: Basophils # 0.1 K/mm3 (0-0.2); Basophils % 0.6 % (0.1-2.0); Eosinophils # 0.1 K/mm3 (0.0-0.4); Eosinophils % 0.3 % (0.1-12.0); Hematocrit 47.1 % (37.0-47.0); Hemoglobin 16.4 g/dL (12.2-16.2); Lymphocytes # 2.2 K/mm3 (0.7-4.5); Lymphocytes % 14.8 % (10-50); Mean Corpuscular HGB Conc 34.8 g/dL (31.8-35.4); Mean Corpuscular Hemoglobin 30.5 pg (27.0-31.2); Mean Corpuscular Volume 87.7 fl (81-99); Mean Platelet Volume 9.7 fl (7.4-10.4); Monocytes # 0.3 K/mm3 (0.1-1.0); Monocytes % 1.9 % (1.7-9.3); Neutrophils # 12.2 K/mm3 (1.8-7.8); Neutrophils % 81.9 % (37.0-80.0); Platelet Count 470 K/mm3 (142-424); Red Blood Count 5.37 M/mm3 (4.20-5.40); Red Cell Distribution Width 12.7 % (11.5-17.5); White Blood Count 14.9 K/mm3 (4.8-10.8)
[2024-05-15] MEDS: LACTATED RINGERS 1000ML 1,000 ML 999 ML IV (09:06)
[2024-05-15] MEDS: IOPAMIDOL-370 (76%);100ML BOTTLE 75 ML IV (09:07)
[2024-05-15] MEDS: SODIUM CHLORIDE 0.9% 10ML SYR (RAD ONLY) 10 ML IV (09:07)
[2024-05-15 09:08] LABS: VBG Base Excess -2.4 mmol/L (-2.4-2.3); VBG HCO3 22.5 mmol/L (23-30); VBG PCO2 38.1 mmol/L (35-51); VBG PH 7.39 mmol/L (7.31-7.41); VBG PO2 29.5 mmol/L (28-40); VBG Total CO2 23.7 mmol/L (23-27)
[2024-05-15 09:10] LABS: Lactate Venous 2.4 mmol/L (0.4-2.0)
[2024-05-15 09:14] LABS: Alanine Aminotransferase 60 U/L (12-78); Albumin/Globulin Ratio 1.6 (1.1-1.8); Alkaline Phosphatase 152 U/L (38-126); Anion Gap 12.2 mEq/L (5-15); Aspartate Amino Transferase 44 U/L (14-36); Bilirubin,Total 0.4 mg/dl (0.2-1.3); Blood Urea Nitrogen 15 mg/dl (7-17); Calcium 9.8 mg/dl (8.4-10.2); Carbon Dioxide 24 mmol/L (22.0-30.0); Chloride 107 mmol/L (98-107); Creatinine Clearance Estimated 166 mL/min (50-200); Estimated Glomerular Filt Rate 88 ml/min (>60); GFR (African American) 106 ML/MIN (>60); Globulin 3.2 g/dL (1.3-3.2); Glucose 141 mg/dl (74-100); Lipase 68 U/L (23-300); Potassium 4.2 mmoL/L (3.5-5.1); Sodium 139 mmol/L (136-145); Total Protein,Serum 8.2 g/dl (6.3-8.2)
[2024-05-15 09:17] LABS: Microscopic, Urine URINE MICROSCOPIC (MICROSCOPIC)
--- NOTE | 2024-05-15 09:22 | PC.NURSE ---
notified er pt is still in pain after morphine
[2024-05-15 09:26] LABS: Troponin I < 0.01 ng/ml (0.00-0.034)
[2024-05-15] MEDS: KETOROLAC 30MG/ML VIAL 15 MG IV (09:27)
[2024-05-15 09:28] LABS: Appearance,Urine Clear (Clear); Bilirubin,Urine Negative (Negative); Blood, Urine Trace (Negative); Color,Urine Yellow (Yellow); Glucose,Urine (UA) Negative (Negative); Ketones,Urine Negative (Negative); Nitrate,Urine Negative (Negative); PH,Urine 6.5 (5.0-8.5); Protein,Urine Negative (Negative); Specific Gravity, Urine 1.025 (1.005-1.030)
[2024-05-15 09:29] LABS: Leukocyte Esterase,Urine Negative (Negative); Urobilinogen,Urine 0.2 EU/dl (0.2)
[2024-05-15 09:31] LABS: HCG Qualitative, Serum Negative (Negative)
[2024-05-15 09:38] LABS: Bacteria,Urine Trace /lpf; Hyaline Casts,Urine OCC #/lpf (0); RBC,Urine Occasional #/hpf (0-3)
[2024-05-15 10:21] LABS: HIV Combo NEGATIVE (Negative)
[2024-05-15 10:29] LABS: Hepatitis C Ab Qual. W/ RFX NEGATIVE (Negative)
--- NOTE | 2024-05-15 10:39 | PC.NURSE ---
pt provided with glass of water
[2024-05-15 13:10] LABS: Reflex Lactic Add Lactic Reflex
== END 2024-05-15 11:21 | disposition home or self-care (01) ==
PROVIDERS: Emergency Provider Student in an Organized Health Care Education/Training Program; PCP Nurse Practitioner Family
DX: R91.1 Solitary pulmonary nodule (principal); R10.10 Upper abdominal pain, unspecified; R10.13 Epigastric pain; R11.2 Nausea with vomiting, unspecified; F17.210 Nicotine dependence, cigarettes, uncomplicated
CPT/HCPCS: 71045; 74177; 80053; 81001; 82803; 83690; 84484; 84703; 85025; 86803; 87389; 93005; 96361; 96374; 96375; 99285; J1885; J2270; J2405; J7120; Q9967

== ENCOUNTER 2024-06-14 08:29 | Outpatient (CLI) | payer OTHER, SELFPAY ==
--- NOTE | 2024-06-14 08:32 | US_ITS ---
FINAL REPORT CLINICAL HISTORY: RUQ PAIN COMPARISON: CT abdomen and pelvis dated 05/15/2024 FINDINGS: ULTRASOUND RIGHT UPPER QUADRANT Sonographic imaging of the right upper quadrant was obtained. The pancreas is partially obscured. There is increased echogenicity in the liver consistent with fatty infiltration. A stone filled gallbladder is suspected. There is no gallbladder wall thickening. There is no biliary ductal dilatation. The common duct is normal. Limited images of the right kidney are unremarkable. IMPRESSION: Cholelithiasis without convincing findings of acute cholecystitis. Fatty liver. Reviewed, Interpreted and Dictated by Brooklyn Carbajal MD Transcribed by Leatha Sethi Authenticated and [facility]
== END 2024-06-14 23:59 | disposition home or self-care (01) ==
LOC: RAD 08:29
PROVIDERS: PCP Nurse Practitioner Family; Visit Provider Physician Assistant
DX: R10.11 Right upper quadrant pain (principal); R11.10 Vomiting, unspecified
CPT/HCPCS: 76705

== ENCOUNTER 2024-07-05 11:58 | Outpatient (CLI) | payer OTHER, SELFPAY ==
[2024-07-05 12:11] VITALS: BMI 39.5
--- NOTE | 2024-07-05 12:21 | ECG_ITS ---
APPROVED REPORT Exam: Resting ECG HR:78 bpm ECG Measurements Heart Rate 78 AXES MI 157 P 47 QRSd 84 QRS -28 QT 375 T 42 QTc 409 Conclusion SINUS RHYTHM LOW QRS VOLTAGE IN PRECORDIAL LEADS [QRS DEFLECTION < 1.0 mV IN CHEST LEADS] Late R wave progression BORDERLINE ECG UNCONFIRMED REPORT Electronically signed by : Red Medeiros MD 07/06/2024 11:32:14
[2024-07-05 12:39] LABS: Basophils # 0.1 K/mm3 (0-0.2); Eosinophils # 0.5 Kmm3 (0.0-0.4); Eosinophils % 4.4 % (0.1-12.0); Hematocrit 42.9 % (37.0-47.0); Hemoglobin 14.5 g/dL (12.2-16.2); Lymphocytes # 4.4 K/mm3 (0.7-4.5); Lymphocytes % 38.3 % (10-50); Mean Corpuscular HGB Conc 33.8 g/dL (31.8-35.4); Mean Corpuscular Hemoglobin 29.8 pg (27.0-31.2); Mean Corpuscular Volume 88.1 fl (81-99); Mean Platelet Volume 9.6 fl (7.4-10.4); Monocytes # 0.9 K/mm3 (0.1-1.0); Monocytes % 8.2 % (1.7-9.3); Neutrophils # 5.5 K/mm3 (1.8-7.8); Neutrophils % 47.8 % (37.0-80.0); Nucleated Red Blood Cells # 0 10^3/uL; Nucleated Red Blood Cells % 0 %; Platelet Count 381 K/mm3 (142-424); Red Blood Count 4.87 M/mm3 (4.20-5.40); Red Cell Distribution Width 12.8 % (11.5-17.5); Red Cell Distribution Width-SD 41.6 fL; White Blood Count 11.4 K/mm3 (4.8-10.8)
[2024-07-05 12:45] LABS: Albumin Level 4.3 g/dl (3.5-5.0); Chloride 110 mmol/L (98-107); Potassium 3.9 mmoL/L (3.5-5.1); Sodium 139 mmol/L (136-145)
[2024-07-05 12:48] LABS: Alanine Aminotransferase 67 U/L (12-78); Albumin/Globulin Ratio 1.5 (1.1-1.8); Alkaline Phosphatase 120 U/L (38-126); Anion Gap 7.9 mEq/L (5-15); Aspartate Amino Transferase 51 U/L (14-36); Bilirubin,Total 0.4 mg/dl (0.2-1.3); Blood Urea Nitrogen 14 mg/dl (7-17); Calcium 9.4 mg/dl (8.4-10.2); Carbon Dioxide 25 mmol/L (22.0-30.0); Creatinine Clearance Estimated 151 mL/min (50-200); Estimated Glomerular Filt Rate 75 ml/min (>60); GFR (African American) 91 ML/MIN (>60); Globulin 2.8 g/dL (1.3-3.2); Glucose 92 mg/dl (74-100); Total Protein,Serum 7.1 g/dl (6.3-8.2)
== END 2024-07-05 23:59 | disposition home or self-care (01) ==
LOC: PREOP 11:59
PROVIDERS: PCP Physician Assistant; Visit Provider Surgery
DX: Z01.810 Encounter for preprocedural cardiovascular examination (principal); R10.9 Unspecified abdominal pain; R94.31 Abnormal electrocardiogram [ECG] [EKG]
CPT/HCPCS: 80053; 85025; 93005

== ENCOUNTER 2024-07-13 08:54 | Day surgery (SDC) | payer OTHER, SELFPAY ==
[2024-07-05 14:13] VITALS: BMI 39.5
[2024-07-13] VITALS (8 sets, daily range): BP systolic 125–174; BP diastolic 70–89; PULSE 75–89; RESP 14–18; TEMP 36.2–36.6; O2SAT 92–98
[2024-07-13] MEDS: 0.9 % SODIUM CHLORIDE 1000ML 1,000 ML 25 ML IV (09:24)
--- NOTE | 2024-07-13 12:48 | EXP.ANES.CKL ---
[facility] Disclaimer: The information contained in this section may have been updated after the patient was seen, as this information can be updated by other users. Medical History Back Pain Generalized anxiety disorder Grief at loss of child Surgical History Tubal ligation status Hx of appendectomy Family History Other Family history of CHF (congestive heart failure) Family history of cancer Family history of hypertension Family history of melanoma Social History Smoking Status: Current every day smoker tobacco type: cigarettes packs per day: 1 alcohol intake: never substance use type: marijuana current occupational status: employed Travel in the last 8 weeks?: None number of children: 1 Have you lived/traveled outside US in past 30 days?: No Contact w/someone who lives/traveled outside US past 30 days?: No Exposure to someone with infectious disease in past 14 days?: No Do you have a fever (greater than 100.4 F or 38 C)?: No Have you tested positive for COVID-19?: No Exposed to someone with COVID-19 in past 14 days?: No Do you have a sore throat?: No Do you have a cough?: No Do you have any weakness?: No Do you have any diarrhea?: No Are you experiencing any unusual bleeding?: No Do you have any muscle aches/pain?: No Do you have any abdominal pain?: No Are you experiencing loss of taste or smell?: No [facility] Anesthesia Checklist Patient Identification Patient Identification: Arm Band and Verbal (Name & ) Structural Data Admitted From: Home Planned Operative Procedure/s: Lap Cholecystectomy Consent for Planned Operative Procedure(s) Verified: Yes Verified Documents: Surgical Consent NPO Status Verified Time NPO: 00:00 Chart Verification Results Verified: None Additional verifications Anesthesia Reactions: No Hx Blood Transfusions: No Blood Transfusion Reaction: No Airway Assessment Mallampati Score:: Class III C-Spine Mobility Assessed: Yes TMJ Mobility Assessed: Yes Dentition: Good Dentition Neurological Assessment Level of Consciousness: Awake, Alert and Appropriate Hx Seizures: No Numbness or tingling in extremities: No Anesthesia Plan Anesthesia Plan: Verified ASA Class: III Anesthesia Type: General
[2024-07-13] MEDS: CEFAZOLIN SODIUM 2 GM in 0.9 % SODIUM CHLORIDE 100 ML IV (14:50)
[2024-07-13] MEDS: LIDOCAINE 1% 20ML MDV 20 ML (15:10)
--- NOTE | 2024-07-13 15:44 | P.OP_ITS ---
Date of procedure: 07/13/24 Pre-op Diagnosis:: Symptomatic cholelithiasis Post-op Diagnosis:: Acute on chronic calculus cholecystitis Procedure performed:: Laparoscopic cholecystectomy Surgeon:: Hardik Osorio MD Anesthesia: MORGAN Estimated blood loss (mL): 15 Operative findings:: Distended gallbladder Pericholecystic fat stranding Infundibular thickening Mild serosal weeping Operative note:: After informed consent was obtained, the patient was taken to the operating room and placed in the supine position. General anesthesia was induced and the abdomen was prepped and draped in a sterile fashion. After infiltration with local anesthetic an infraumbilical incision was made. A Veress needle was placed in position. The abdomen was insufflated. A 5 mm optical trocar was placed in position. Under direct visualization, a 12 mm trocar was placed in the subxiphoid position and 2 additional 5 mm trocars were placed in the right upper quadrant. The gallbladder was elevated up and over the liver margin. The tissue around the cystic duct was carefully dissected. 3 clips were placed proximally and the duct was transected with harmonic frank. Harmonic frank were then utilized to dissect the gallbladder away from the liver margin with careful attention to the control of the cystic artery. The gallbladder was placed in a retrieval bag and removed through the subxiphoid trocar site. The right upper quadrant was thoroughly irrigated. No active bleeding or bile leak was noted. Fascia at the subxiphoid trocar site was reapproximated utilizing the NeoClose device. The remaining trocars were removed. All wounds were irri gated and skin was closed with 4-0 Monocryl in an interrupted mattress fashion to facilitate hemostasis. Dressings were applied. The patient's anesthetic agents were reversed and extubation was completed prior to transfer to recovery in stable condition. Condition: stable Disposition: PACU Specimens:: Gallbladder and contents Complications:: No immediate
--- NOTE | 2024-07-13 15:53 | EXP.ANES.I ---
[facility] Anesthesia Record Part I Anesthesia Record I Intake, IV Amount: 700 Hydration: Adequate Estimated blood loss (mL): 0 Urine output (mL): 0 Blood Products used (#): none Blood Pressure: 174/77 SaO2: 92 Pulse Rate: 82 Airway Patency: Patent Respiratory Rate: 14 Temperature: 97.1 F Patient is:: Drowsy and Stable Stable to PACU at:: 15:49
[2024-07-13] MEDS: MORPHINE 2MG/ML SYRINGE 2 MG IV (15:58)
[2024-07-13] MEDS: HYDROMORPHONE 2MG/ML SYRINGE 0.5 MG IV ×2 (16:06→16:10)
[2024-07-13] MEDS: ONDANSETRON 4MG/2ML VIAL 4 MG IV (16:21)
--- NOTE | 2024-07-14 07:45 | EXP.ANES.II ---
[facility] Anesthesia Record Part II Anesthesia Record Part II Discharge Time: 16:21 Destination: Medical Surgical Department PACU nurse assessment reviewed?: Yes Patient Condition:: Good Anesthesia Complications:: None Swallowing reflex intact?: Yes Airway Patency: Patent Cyanosis?: No Blood Pressure: 155/89 SaO2: 96 Respiratory Rate: 14 Pulse Rate: 79 Temperature: 97.8 F Mental Status: Alert & Oriented Pain level:: 2 Nausea and/or vomitting:: None Intake, IV Amount: 0 Hydration: Adequate
[2024-07-14 07:46] VITALS: BP 155/89; PULSE 79; RESP 14; TEMP 36.6; O2SAT 96
== END 2024-07-13 16:49 | disposition home or self-care (01) ==
PROVIDERS: PCP Physician Assistant; Visit Provider Surgery
PROC: 0FT44ZZ Resection of Gallbladder, Percutaneous Endoscopic Approach (ICD-10-PCS; CPT 47562; principal; 2024-07-13 10:45)
DX: K80.12 Calculus of gallbladder with acute and chronic cholecystitis without obstruction (principal)
CPT/HCPCS: 47562; 96374; J3490; J0690; J1100; J1171; J1200; J2250; J2270; J2405; J3010; J7030

== ENCOUNTER 2025-02-08 07:37 | Outpatient (CLI) | payer OTHER, SELFPAY ==
--- NOTE | 2025-02-08 07:39 | MM_ITS ---
PROCEDURE INFORMATION: Exam: Bilateral Screening 3D Mammography Exam date and time: 02/08/2025 7:54 AM Age: 54 years old Clinical indication: Screening mammogram TECHNIQUE: Imaging protocol: Bilateral Screening tomosynthesis and 2D mammography including computer-aided detection (CAD) when performed. COMPARISON: MG DMSB DIG MAMM-SCREEN ANIBAL 12/19/2015 5:12 PM FINDINGS: MAMMOGRAPHY: Breast composition: There are scattered areas of fibroglandular density. Mass: Stable benign-appearing subcentimeter nodules are present in the bilateral breasts. No new or morphologically suspicious nodule has developed to suggest malignancy. Architectural distortion: No new or suspicious architectural distortion. Calcifications: No new or suspicious calcifications are present Asymmetric density: No new or suspicious asymmetric density is present Skin thickening: None. Axillary adenopathy: None. IMPRESSION: No mammographic evidence of malignancy. Recommend annual screening mammography unless otherwise clinically indicated. ASSESSMENT: BI-RADS category 2: Benign.
--- OUTSIDE RECORDS SUMMARY | 2025-02-08 07:39 | XMS_ITS | Data Portability ---
Author Organization [facility] [place] - M[facility] Address [address] [place] [address] Assessment No assessment recorded. Plan of Treatment Reminders Order Date Submit Date Provider Last Modified By Organization Details Last Modified Time Details Appointments None recorded. Lab vitamin D, 25-hydroxy, total, serum 2024 025 [facility] [address] [place] [address], [address], 5 09:09:37 lipid panel, serum 2024 025 FORSYTH [facility] [address] [place] [address], [address], 5 09:09:35 TSH, ultra-sensi tive, serum 2024 025 [facility]TH [facility] [address] [place] [address], [address], 5 09:09:36 Hepatitis C IgG Ab, qual, serum 2024 025 [facility]), [address] [place] [address], [address], 5 09:09:36 HIV 1 + 2, meaningful use set 2024 025 [facility] [address] [place] [address], [address], 09:09:37 CMP, serum or plasma 2024 025 FORSYTH [facility] ([place]), [address] [place], [address], 09:09:34 CBC w/ auto diff 2024 025 FORSYTH [facility] ([place]), [address] [place], [address], 09:09:33 Referral None recorded. Procedures None recorded. Surgeries None recorded. Imaging MAMMO, screening, digital, bilateral [email or web address], [address] [facility] [address], [place], [address], 14:53:27 US, abdomen, limited - right upper quadrant pain, postprandia l vomiting 2024 [facility], [address] [facility] [address], [place], [address], 09:34:54 Medication Orders Vraylar 1.5 mg capsule 2024 025 FORSYTH [id number], [address] [place], [address], 11:44:18 Patient TargetsNo targets recorded. Patient Instructions Encounter Date Encounter Id Patient Instructions Last Modified By Organization Details Last Modified Time 01/16/2025 [id number] mammogram: about this test [email or web address] Not available 01/16/2025 13:05:53 HIV testing: car e instructions [email or web address] Not available 01/16/2025 12:33:45 Reason for Referral None Reported. Results Created Date Observation Date Name Description Value Unit Range Abnormal Flag Note LastModifiedBy Organization Detail LastModifiedTime 01/17/20 25 01/17/2025 CBC WITH DIFFE RENTI AL/PL ATELE T WBC 11.3 x10e3 /uL 3.4-10 .8 above high normal Not Available [facility] ([facility]) [address] [facility], [place], [address], 01/17/2025 09:09:33 01/17/2001/17/2025 CBC WITH DIFFE RENTI AL/PL ATELE T RBC 5.61 x10e6 /uL 3.77-5 .28 above high normal Not Available [facility] ([facility]) [address] [facility], [place], [address], 01/17/2025 09:09:33 01/17/20 25 01/17/2025 CBC WITH DIFFE RENTI AL/PL ATELE T hemoglobin 16.4 g/dL 11.1-1 5.9 above high normal Not Available [facility] ([facility]) [address] [facility], [place], [address], 01/17/2025 09:09:33 01/17/2001/17/2025 CBC WITH DIFFE RENTI AL/PL ATELE T hematocrit 49.5 % 34.0-4 6.6 above high normal Not Available [facility] ([facility]) [address] [place], [address], 01/17/2025 09:09:33 01/17/2001/17/2025 CBC WITH DIFFE RENTI AL/PL ATELE T MCV 88 fL 79-97 normal Not Available [facility] ([facility]) [address] [place], [address], 01/17/2025 09:09:33 01/17/2001/17/2025 CBC WITH DIFFE RENTI AL/PL ATELE T MCH 29.2 pg 26.6-3 3.0 normal Not Available [facility] ([facility]) [address] [place], [address], 01/17/2025 09:09:33 01/17/20 25 01/17/2025 CBC WITH DIFFE RENTI AL/PL ATELE T MCHC 33.1 g/dL 31.5-3 5.7 normal Not Available [facility] ([facility]) [address] [facility], [place], [address], 01/17/2025 09:09:33 01/17/20 25 01/17/2025 CBC WITH DIFFE RENTI AL/PL ATELE T RDW 12.6 % 11.7-1 5.4 Not Available [facility] ([facility]) [address] [facility], [place], [address], 01/17/2025 09:09:33 01/17/20 25 01/17/2025 CBC WITH DIFFE RENTI AL/PL ATELE T platelets 429 x10e3 /uL 150-45 0 normal Not Available [facility] ([facility]) [address] [facility], [place], [address], 01/17/2025 09:09:33 01/17/2001/17/2025 CBC WITH DIFFE RENTI AL/PL ATELE T neutrophils 48 % not estab. normal Not Available [facility] ([facility]) [address] [facility], [place], [address], 01/17/2025 09:09:33 01/17/20 25 01/17/2025 CBC WITH DIFFE RENTI AL/PL ATELE T lymphs 40 % not estab. normal Not Available [facility] ([facility]) [address] [facility], [place], [address], 01/17/2025 09:09:33 01/17/20 25 01/17/2025 CBC WITH DIFFE RENTI AL/PL ATELE T monocytes 8 % not estab. normal Not Available [facility] ([facility]) [address] [place], [address], 01/17/2025 09:09:33 01/17/20 25 01/17/2025 CBC WITH DIFFE RENTI AL/PL ATELE T eos 3 % not estab. normal Not Available [facility] ([facility]) [address] [place], [address], 01/17/2025 09:09:33 01/17/2001/17/2025 CBC WITH DIFFE RENTI AL/PL ATELE T basos 1 % not estab. normal Not Available [facility] ([facility]) [address] [facility], [place], [address], 01/17/2025 09:09:33 01/17/20 25 01/17/2025 CBC WITH DIFFE RENTI AL/PL ATELE T immature cells EQUIPMENT SERVICE ENGINEER Not Available [facility]) [address] [facility], [place], [address], 01/17/2025 09:09:33 01/17/2001/17/2025 CBC WITH DIFFE RENTI AL/PL ATELE T neutrophils (absolute) 5.4 x10e3 /uL 1.4-7. 0 normal Not Available [facility] ([facility]) [address] [place], [address], 01/17/2025 09:09:33 01/17/20 25 01/17/2025 CBC WITH DIFFE RENTI AL/PL ATELE T lymphs (absolute) 4.5 x10e3 /uL 0.7-3. 1 above high normal Not Available [facility] ([facility]) [address] [place], [address], 01/17/2025 09:09:33 01/17/20 25 01/17/2025 CBC WITH DIFFE RENTI AL/PL ATELE T monocytes(ab solute) 0.9 x10e3 /uL 0.1-0. 9 normal Not Available [facility] ([facility]) [address] [place], [address], 01/17/2025 09:09:33 01/17/20 25 01/17/2025 CBC WITH DIFFE RENTI AL/PL ATELE T eos (absolute) 0.4 x10e3 /uL 0.0-0. 4 normal Not Available [facility] ([facility]) [address] [facility], [place], [address], 01/17/2025 09:09:33 01/17/20 25 01/17/2025 CBC WITH DIFFE RENTI AL/PL ATELE T baso (absolute) 0.1 x10e3 /uL 0.0-0. 2 normal Not Available [facility] ([facility]) [address] [facility], [place], [address], 01/17/2025 09:09:33 01/17/20 25 01/17/2025 CBC WITH DIFFE RENTI AL/PL ATELE T immature granulocytes 0 % not estab. Not Available [facility] ([facility]) [address] [facility], [place], [address], 01/17/2025 09:09:33 01/17/20 25 01/17/2025 CBC WITH DIFFE RENTI AL/PL ATELE T immature grans (abs) 0.0 x10e3 /uL 0.0-0. 1 Not Available [facility] ([facility]) [address] [facility], [place], [address], 01/17/2025 09:09:33 01/17/20 25 01/17/2025 CBC WITH DIFFE RENTI AL/PL ATELE T NRBC EQUIPMENT SERVICE ENGINEER Not Available [facility] ([facility]) [address] [facility], [place], [address], 01/17/2025 09:09:33 01/17/20 25 01/17/2025 CBC WITH DIFFE RENTI AL/PL ATELE T hematology comments: EQUIPMENT SERVICE ENGINEER Not Available [facility] ([facility]) [address] [place], [address], 01/17/2025 09:09:33 01/17/20 25 01/17/2025 COMP. METAB OLIC PANEL (14) glucose 83 mg/dL 70-99 normal Not Available [facility] ([facility]) [address] [place], [address], 01/17/2025 09:09:34 01/17/20 25 01/17/2025 COMP. METAB OLIC PANEL (14) BUN 12 mg/dL 6-24 normal Not Available [facility] ([facility]) [address] [place], [address], 01/17/2025 09:09:34 01/17/20 25 01/17/2025 COMP. METAB OLIC PANEL (14) creatinine 0.79 mg/dL 0.57-1 .00 normal Not Available [facility] ([facility]) [address] [place], [address], 01/17/2025 09:09:34 01/17/20 25 01/17/2025 COMP. METAB OLIC PANEL (14) eGFR 89 mL/mi n/1.7 3 >59 normal Not Available [facility] ([facility]) [address] [place] [place], [address], 01/17/2025 09:09:34 01/17/20 25 01/17/2025 COMP. METAB OLIC PANEL (14) BUN/creatini ne ratio 15 9-23 normal Not Available [facility] ([facility]) [address] [place], [address], 01/17/2025 09:09:34 01/17/20 25 01/17/2025 COMP. METAB OLIC PANEL (14) sodium 139 mmol/ L 134-14 4 normal Not Available [facility] ([facility]) [address] [place] [place], [address], 01/17/2025 09:09:34 01/17/20 25 01/17/2025 COMP. METAB OLIC PANEL (14) potassium 4.4 mmol/ L 3.5-5. 2 normal Not Available [facility] ([facility]) [address] [facility] [place], [address], 01/17/2025 09:09:34 01/17/20 25 01/17/2025 COMP. METAB OLIC PANEL (14) chloride 104 mmol/ L 96-106 normal Not Available [facility] ([facility]) [address] [place], [address], 01/17/2025 09:09:34 01/17/20 25 01/17/2025 COMP. METAB OLIC PANEL (14) carbon dioxide, total 18 mmol/ L 20-29 below low normal Not Available [facility] ([facility]) [address] [place], [address], 01/17/2025 09:09:34 01/17/2001/17/2025 COMP. METAB OLIC PANEL (14) calcium 9.6 mg/dL 8.7-10 .2 normal Not Available [facility] ([facility]) [address] [place], [address], 01/17/2025 09:09:34 01/17/20 25 01/17/2025 COMP. METAB OLIC PANEL (14) protein, total 7.2 g/dL 6.0-8. 5 normal Not Available [facility] ([facility]) [address] [place], [address], 01/17/2025 09:09:34 01/17/2001/17/2025 COMP. METAB OLIC PANEL (14) albumin 4.1 g/dL 3.8-4. 9 normal Not Available [facility] ([facility]) [address] [place], [address], 01/17/2025 09:09:34 01/17/2001/17/2025 COMP. METAB OLIC PANEL (14) globulin, total 3.1 g/dL 1.5-4. 5 Not Available [facility] ([facility]) [address] [place], [address], 01/17/2025 09:09:34 01/17/20 25 01/17/2025 COMP. METAB OLIC PANEL (14) bilirubin, total 0.4 mg/dL 0.0-1. 2 normal Not Available [facility] ([facility]) [address] [place], [address], 01/17/2025 09:09:34 01/17/20 25 01/17/2025 COMP. METAB OLIC PANEL (14) alkaline phosphatase 131 IU/L 49-135 normal Not Available [facility]) [address] [place], [address], 01/17/2025 09:09:34 01/17/20 25 01/17/2025 COMP. METAB OLIC PANEL (14) AST (SGOT) 73 IU/L 0-40 above high normal Not Available [facility] ([facility]) [address] [place], [address], 01/17/2025 09:09:34 01/17/20 25 01/17/2025 COMP. METAB OLIC PANEL (14) ALT (SGPT) 101 IU/L 0-32 above high normal Not Available [facility] ([facility]) [address] [place], [address], 01/17/2025 09:09:34 01/17/20 25 01/17/2025 LIPID PANEL cholesterol, total 234 mg/dL 100-19 9 above high normal Not Available [facility] ([facility]) [address] [place], [address], 01/17/2025 09:09:35 01/17/20 25 01/17/2025 LIPID PANEL triglyceride s 162 mg/dL 0-149 above high normal Not Available [facility] ([facility]) [address] [place], [address], 01/17/2025 09:09:35 01/17/20 25 01/17/2025 LIPID PANEL HDL cholesterol 45 mg/dL >39 normal Not Available [facility]) [address] [facility], [place], [address], 01/17/2025 09:09:35 01/17/20 25 01/17/2025 LIPID PANEL VLDL cholesterol denilson 30 mg/dL 5-40 Not Available [facility] ([facility]) [address] [facility], [place], [address], 01/17/2025 09:09:35 01/17/20 25 01/17/2025 LIPID PANEL LDL chol calc ([facility]) 159 mg/dL 0-99 above high normal Not Available [facility] ([facility]) [address] [facility], [place], [address], 01/17/2025 09:09:35 01/17/20 25 01/17/2025 LIPID PANEL LDL calc comment: EQUIPMENT SERVICE ENGINEER Not Available [facility]) [address] [facility], [place], [address], 01/17/2025 09:09:35 01/17/20 25 01/17/2025 HCV ANTIB AYALA CASCA DE(PC R/GEN O) HCV Ab Non Reacti ve non reacti ve Not Available [facility] ([facility]) [address] [facility], [place], [address], 01/17/2025 09:09:36 01/17/2001/17/2025 HCV ANTIB AYALA CASCA DE(PC R/GEN O) interpretati on: Commen t Not infec allen with HCV unles s early or acute infec tion is suspe cted (whic h may be delay ed in an immun ocomp romis ed indiv idual ), or other evide nce exist s to indic ate HCV infec tion. Not Available [facility] ([facility]) [address] [facility], [place], [address], 01/17/2025 09:09:36 01/17/20 25 01/17/2025 TSH TSH 1.370 uIU/m L 0.450- 4.500 normal Not Available [facility] ([facility]) [address] [facility], [place], [address], 01/17/2025 09:09:36 01/17/20 25 01/17/2025 VITAM IN D, 25-HY DROXY vitamin D, 25-hydroxy 14.3 NG/mL 30.0-1 00.0 below low normal Vitam in D defic iency has been defin ed by the Insti tute of Medic ine and an Endoc rine Socie ty pract ice guide line as a level of serum 25-OH vitam in D less than 20 ng/mL (1,2) . The Endoc rine Socie ty went on to furth er defin e vitam in D insuf ficie ncy as a level betwe en 21 and 29 ng/mL (2). 1. IOM (Inst itute of Medic ine). 2010. Shan ry refer ence mary jane es for calci um and D. Elliot crowe [place]: [facility] . 2. Anil samuels [place], Nenita reyes [place], Emiliano off-F errar i MORRISON, et al. Evalu ation , treat ment, and preve ntion of vitam in D defic iency : an Endoc rine Socie ty clini denilson pract ice guide line. JCEM. 2010; 96(7) :1911 -30. Not Available [facility] ([facility]) [address] [facility], [place], [address], 01/17/2025 09:09:36 01/17/2001/17/2025 HIV AB/P2 4 AG WITH REFLE X HIV Ab/P24 Ag screen Non Reacti ve non reacti ve HIV Negat ashley HIV-1 /HIV- 2 antib odies and HIV-1 p24 antig en were NOT detec allen. There is no labor atory evide nce of HIV infec tion. Not Available [facility] ([facility]) [address] [facility], [place], [address], 01/17/2025 09:09:37 06/21/19 25 06/14/2024 US, abdom en, limit ed No observ ation record ed. [facility] [address], [place], [address], 06/20/2024 10:21:56 Result Notes None recorded. Problems Name Problem SNOMED Code Status Onset Date Resolution Date Notes Provider Name and Address Organization Details Recorded Time Right upper quadrant pain 715377487 Active 2024 ELAINE Ragsdale [address] [place] [address], [address] 8, [employer] 11:39:45 Mixed anxiety and depressive disorder 395427968 Active 2024 ELAINE Ragsdale [address] [place] [address], [address] 8, [employer] 11:44:00 Vitamin D deficiency 18152649 Active 2024 ELAINE Ragsdale [address] [place] [address], 01578-[address] 8, [employer] 16:00:45 Secondary polycythemia 60686179 Active 2024 ELAINE Ragsdale [address] [place] [address], 84288[address] 8, [employer] 16:00:56 Mixed hyperlipidemia 576584844 Active 2024 ELAINE Ragsdale [address] [place] [address], [address] 8, [employer] 16:01:05 Problem Notes None recorded. Procedures Surgical History Date Name Laterality Status Provider Name and Address Organization Details Recorded Time 07/15/19 25 laparoscopic cholecystectomy completed Anastasia Ramirez [employer] 01/16/2025 08:17:04 12/23/19 18 Most Recent Mammogram completed [employer] 06/06/2024 11:12:16 Appendectomy completed [employer] 06/06/2024 11:12:17 Imaging Results None recorded. Procedure Notes None recorded. Medical Equipment None Reported. Allergies Allergen ID Allergen Name Allergen Category Reaction Reaction Severity Criticality Documentation Date Start Date Code Code System Note Provider Name and Address Organization Details Recorded Time 26892 Substance with sulfonami de structure and antibacte rial mechanism of action (substanc e) medicatio n itching other rash Not available Not available Not available Not available 06/06/2024 35349 8003 SNOMED Patrizia Castillo [facility] [email or web address] [facility] 5 11:12:16 Medications Name Sig Start Date Stop Date Status Note LastModified by Organization Details LastModified Time fluoxetine 40 mg capsule TAKE 1 CAPSULE BY MOUTH EVERY DAY 01/16 completed Not Available Not Available Not Available azithromyci n 250 mg tablet 06/06 completed Not Available Not Available Not Available hydrocodone 5 mg-acetamin ophen 325 mg tablet TAKE ONE TABLET BY MOUTH EVERY 6 HOURS NEEDED FOR post op pain MAY CAUSE DROWSINES S 01/16 completed Not Available Not Available Not Available prednisone 20 mg tablet TAKE 1 TABLET BY MOUTH 2 TIMES A DAY FOR 5 DAYS 06/06 completed Not Available Not Available Not Available aspirin 81 mg tablet,michele yed release TAKE 1 TABLET BY MOUTH EVERY DAY active Not Available Not Available No t Available alprazolam 0.5 mg tablet TAKE 1 TABLET BY MOUTH TWICE A DAY NEEDED FOR ANXIETY 01/16 completed Not Available Not Available Not Available benzonatate 100 mg capsule 06/06 completed Not Available Not Available Not Available ergocalcife rol (vitamin D2) 1,250 mcg (50,000 unit) capsule TAKE 1 CAPSULE BY MOUTH ONE TIME PER WEEK FOR 90 DAYS active Not Available Not Available No t Available albuterol sulfate HFA 90 mcg/actuati on aerosol inhaler INHALE 2 PUFFS BY MOUTH EVERY 4 TO 6 HOURS NEEDED 06/06 completed Not Available Not Available Not Available ondansetron 4 mg disintegrat ing tablet DISSOLVE 1 TABLET ORALLY EVERY 8 HOURS NEEDED FOR NAUSEA AND VOMITING FOR 4 DAYS 06/06 completed Not Available Not Available Not Available cholecalcif cori (vitamin D3) 50 mcg (2,000 unit) capsule TAKE 1 CAPSULE BY MOUTH EVERY DAY FOR 90 DAYS active Not Available Not Available No t Available Vraylar 1.5 mg capsule TAKE 1 CAPSULE BY MOUTH EVERY DAY active Not Available Not Available No t Available Vitals Date Recorded Body height Body mass index (BMI) Body weight Heart rate Oxygen saturation Body temperature Systolic And Diastolic Provider Name and Address Organization Details Last Updated DateTime 172.72 cm 40 kg/m2 207336. 79 g 70 /min 97 % 98 [degF] 121/85 mm[Hg] Patrizia Castillo [employer] 11:16:25 Date Recorded Body height Body mass index (BMI) Body weight Oxygen saturation Heart rate Body temperature Systolic And Diastolic Provider Name and Address Organization Details Last Updated DateTime 172.72 cm 40.6 kg/m2 856432. 44 g 95 % 74 /min 98.2 [degF] 134/84 mm[Hg] Anastasia Ramirez [employer] 11:29:07 Social History Question Answer Notes LastModified by Organizat ion Details LastModified Time Tobacco Smoking Status Current Every Day Smoker Patrizia bethea [employer] 06/06/2024 11:12:16 Do You Have An Advance Directive? No [email or web address] Information not available 06/06/2024 Is Your Home Air Conditioned? Yes [email or web address] Information not available 06/06/2024 If You Are , What Was Your Level Of Alcohol Consumption Prior To ? None [email or web address] Information not available 06/06/2024 How Many Years Have You Consumed Alcohol? 15 [email or web address] Information not available 06/06/2024 Do You Wear A Helmet When Biking? No [email or web address] Information not available 06/06/2024 What Is Your Level Of Caffeine Consumption? Moderate [email or web address] Information not available 06/06/2024 Are You A Caregiver? No Information not available 01/16/2025 What Type Of Manager R D Do You Use? None [email or web address] Information not available 06/06/2024 In The 14 Days Before Symptom Onset, Have You Had Close Contact With A Laboratory-confi rmed COVID-19 While That Case Was Ill? No [email or web address] Information not available 06/06/2024 In The 14 Days Before Symptom Onset, Have You Had Close Contact With A Person Who Is Under Investigation For COVID-19 While That Person Was Ill? No [email or web address] Information not available 06/06/2024 Have You Been To An Area Known To Be High Risk For COVID-19? No Information not available 06/06/2024 What Type Of Diet Are You Following? REGULAR [email or web address] Information not available 06/06/2024 What Is The Highest Grade Or Level Of School You Have Completed Or The Highest Degree You Have Received? UT10044-9 [email or web address] Information not available 06/06/2024 Who Is Your Employer? [employer] Information n ot available 06/06/2024 How Many Days Of Moderate To Strenuous Exercise, Like A Brisk Walk, Did You Do In The Last 7 Days? 3 [email or web address] Information not available 06/06/2024 On Those Days That You Engage In Moderate To Strenuous Exercise, How Many Minutes, On Average, Do You Exercise? 20 Information not available 01/16/2025 Have There Been Any Changes To Your Family Or Social Situation? No Information not available 01/16/2025 Are There Any Guns Present In Your Home? Yes [email or web address] Information not available 06/06/2024 Which Of Your Hands Is Dominant? Right [email or web address] Information not available 06/06/2024 Do You Engage In Moderate/heavy Exercise (e.g. Brisk Walk, Jogging, Strength Training, Etc)? Yes Information not available 01/16/2025 What Is Your Home Situation? Relatives [email or web address] Information not available 06/06/2024 How Many Times In The Past Year Have You Used An Illegal Drug Or Used A Prescription Medication For Nonmedical Reasons? 0 Information not available 01/16/2025 Where Do You Live? [facility] Information not available 01/16/2025 Do You Have A Medical Power Of Para Educator? No Information not available 06/06/2024 What Was The Date Of Your Most Recent Tobacco Screening? 01/16/2025 Information not available 01/16/2025 Are There Any Occupational Health Risks Where You Work? No [email or web address] Information not available 06/06/2024 What Is Your Current Pack Years? [email or web address] Information not available 01/16/2025 Have You Ever Been Counseled For Unhealthy Alcohol Use? No Information not available 01/16/2025 Do You Have Any Pets? Yes [email or web address] Information not available 06/06/2024 Do You Use Protection During Sex? No [email or web address] Information not available 06/06/2024 What Is Your Relationship Status? Information not available 06/06/2024 Have You Repeated Any Grades? No [email or web address] Information not available 06/06/2024 Do You Wear A Seatbelt When Driving Or As A Passenger? Yes Information not available 01/16/2025 Do You Use Your Seat Belt Or Car Seat Routinely? Yes [email or web address] Information not available 06/06/2024 Are You Sexually Active? No Information not available 01/16/2025 Do You Have Any Siblings? Yes [email or web address] Information not available 06/06/2024 Do You Have Smoke And Carbon Monoxide Detectors In Your Home? No [email or web address] Information not available 06/06/2024 At What Age Did You Start Smoking Tobacco? 15 [email or web address] Information not available 06/06/2024 Are You Passively Exposed To Smoke? Yes Information not available 01/16/2025 Are There Any Smokers In Your House? Yes [email or web address] Information not available 06/06/2024 How Much Tobacco Do You Smoke? 0.5 PPD [email or web address] Information not available 06/06/2024 What Types Of Sporting Activities Do You Participate In? Water [email or web address] Information not available 06/06/2024 Do You Use Sunscreen Routinely? Yes [email or web address] Information not available 06/06/2024 Has Tobacco Cessation Counseling Been Provided? Yes Information not available 01/16/2025 On What Date Was Tobacco Cessation Counseling Provided? 01/16/2025 Information not available 01/16/2025 How Many Years Have You Smoked Tobacco? 35 [email or web address] Information not available 06/06/2024 Have You Recently Traveled Abroad? No [email or web address] Information not available 06/06/2024 Do You Have Difficulty Walking Or Climbing Stairs? Yes [email or web address] Information not available 06/06/2024 What Contraceptive Method Was Reported At Start Of This Visit? None Information not available 01/16/2025 Do You Feel Safe In Your Home? Yes Information not available 01/16/2025 Do You Have Any Dietary Restrictions? No Information not available 01/16/2025 How Many Days In The Past Year Have You Consumed 4 Or More Drinks? 10 [email or web address] Information not available 06/06/2024 What Is Your Reason For Having No Contraceptive Method At Start Of This Visit? Other Information not available 01/16/2025 Sex: Unknown Functional Status Question Answer Note LastModified by Organizat ion Details LastModified Time How many times per week do you consume alcohol? Less than 1 time per week Information not available 01/16/2025 Do you or have you ever used smokeless tobacco? [id number] Information n ot available 01/16/2025 Are you currently employed? Yes [email or web address] Information not available 06/06/2024 Do you have transportation difficulties? No Information not available 01/16/2025 Are you able to care for yourself independently? Yes Information not available 06/06/2024 Do you have difficulty dressing, bathing, grooming, or toileting? No Information not available 06/06/2024 Do you or have you ever used e-cigarettes or vape? Former user of electronic cigarettes Information not available 01/16/2025 What is your exercise level? Occasional [email or web address] Information not available 06/06/2024 Do you use any illicit or recreational drugs? No [email or web address] Information not available 06/06/2024 Do you feel safe in your relationship? Yes Information not available 01/16/2025 Do you or have you ever used any other forms of tobacco or nicotine? Yes Information not available 01/16/2025 What is your level of alcohol consumption? Occasional [email or web address] Information not available 06/06/2024 Are you able to walk independently without assistance or assistive devices? YESWOREST [email or web address] Information not available 06/06/2024 Do you have difficulty doing errands alone? No Information not available 06/06/2024 Mental Status Question Answer Note LastModified by Organizat ion Details LastModified Time Do you feel stressed (tense, restless, nervous, or anxious, or unable to sleep at night)? [id number] Information not available 01/16/2025 Do you have difficulty concentrating, remembering or making decisions? No [email or web address] Information no t available 06/06/2024 Are you or have you been involved with bullying? No [email or web address] Information not available 06/06/2024 Family History Relationship Description Onset Age of this Age Resolved Age Notes LastModified by Organization Details LastModified Time Paternal Grandmother Hypercholest [email or web address] Not available 2024 11:12:16 Paternal Grandmother Hypertensive disorder [email or web address] Not available 2024 11:12:16 Mother Arthritis Not availab le 06/06/2024 11:12:16 Brother Hypercholest erolemia [email or web address] Not available 2024 11:12:16 Brother Hypertensive disorder [email or web address] Not available 2024 11:12:16 Brother Heart disease Not available 2024 11:12:16 Sister Hypercholest erolemia [email or web address] Not available 2024 11:12:16 Sister Malignant neoplasm of breast Not available 2024 11:12:16 Sister Arthritis Not availab le 06/06/2024 11:12:16 Sister Hypertensive disorder [email or web address] Not available 2024 11:12:16 Sister Heart disease [email or web address] Not available 2024 11:12:16 Paternal Grandfather Heart disease [email or web address] Not available 2024 11:12:16 Father Hypercholest erolemia [email or web address] Not available 2024 11:12:16 Father Hypertensive disorder [email or web address] Not available 2024 11:12:16 Father Heart disease [email or web address] Not available 2024 11:12:16 Medical History Condition Response Coronary Artery Disease N Other N Gout N Kidney Stones N Blood Diseases N Hyperthyroidism N Breast Cancer N Blood Transfusion N Emergency room visit since last appointm ent. N Hypothyroidism N Lung Disease N Dermatologic Disorders N Depression Y COPD N Developmental or Behavioral Disorders N Defects or Inherited Disease N Breast Problem N Difficulty Swallowing N Anesthesia Complications N History of STI N Anxiety Disorder Y Meniere's disease N Autoimmune disease N Muscle, Joint, or Bone Problems N Obesity Y Vision or Eye Problems N Arthritis N Infertility N Polyps N Mental Disorder N Congenital Anomalies N Acid Reflux (GERD) N Cancer N Stroke N Neurologic/Epilepsy N Endometriosis N Bladder or Kidney Problems N High Cholesterol N Liver Disease N Organ Transplant N Psychiatric/Mental Health Condition N Headaches N Schizophrenia N Fibromyalgia N Dialysis N Kidney Disease N Allergies/Hayfever N Heart Problems N Ear or Hearing Problems N Hospitalizations N Learning Disorder N Artificial Joints N Thyroid Problems N GI Problems N Acne N ADD/ADHD N Eating Disorder N Anemia N Constipation N Mental Illness N Ovarian Cancer N Diabetes N Bedwetting N Hepatitis/Liver Disease N Tuberculosis N Eczema N Diverticulitis N Abuse/Domestic Violence N Asthma N Trauma/Violence N Substance Abuse N Amnesia/Cognitive Decline N Reflux/GERD N Depression/ depression N Hepatitis N Heart Disease N Pulmonary Embolism N Tourette Syndrome N Pre-Eclampsia N Hypertension N Chronic Ear Infections N Osteoporosis N Chicken Pox N Autism Spectrum Disorder (ASD) N Thrombophilias N Gynecological History Statement/Question Response Menses Monthly N HPV Vaccine N Date of Last Pap Smear Most Recent Mammogram 12/22/2017 Age at First Child Obstetrics History GPAL:G 0 P 0 0 0 0 Immunizations Vaccine Type Date Status Note Provider Nam e and Address Organization Details Recorded Time COVID-19, mRNA, LNP-S, PF, 30 mcg/0.3 mL dose 06/21/2020 completed Not Available [facility] 11:19:51 COVID-19, mRNA, LNP-S, PF, 30 mcg/0.3 mL dose 07/12/2020 completed Not Available [facility] 5 11:19:51 Past Encounters Encounter ID Performer Location Encounter Start Date Encounter Closed Date Diagnosis/Indication Diagnosis SNOMED-CT Code Diagnosis ICD10 Code Diagnosis IMO Codes Diagnosis Note [id number] ELAINE Ragsdale [facility] [address] [place] [address] [phone] 06/06/2024 11:06:10 06/06/2024 11:46:40 Right upper quadrant pain 021470068 R10.11 Check GB US - if negative, consider EGD [id number] ELAINE Ragsdale [facility] [address] [place] [address] [phone] 2 01/16/2025 11:18:50 01/16/2025 12:12:22 Mixed anxiety and depressive disorder 298054503 F41.9 F32.A 075597 Grief reaction to loss of son - trial Vraylar (samples given) HIV screening 560740937 Z11.4 668823 Viral scre ening status 447836995 Z11.59 507908 Screening mammography 24 103857 Z12.31 41408676 Hyperlipid emia screening 851334222 Z13.220 892351 Thyroid di sorder screening 062088004 Z13.29 81228 Screening for disorder 748882877 Z13.21 78118194 Health Concerns Section Related Observation LastModified by Organization Detai ls LastModified Time None Recorded Concern Status LastModified by Organization Details LastModified Time None Recorded Advance Directives Directive N: Payers Insurance Date Sequence Insurance Name Policy Number Policy Vu Covered Member ID Vu Member ID Guarantor Name 06/06/2024 1 [employer] Subrena Cm [id number] Subrena [place] 06/06/2024 1 [employer] - RESERVE NATIONAL - INDIVIDUAL NON COMPREHENSIVE LIMITED BENEFITS Subrena [place] [id number] Subrena Cm 01/13/2025 1 [employer] (PPO) Subrena D [place] [id number] Subrena [place] Notes Date Note Type Note Provider Name and Address Organization Details Recorded Time 06/06/2024 text/html ROS as noted in the HPI Patient presents to establish care.Patient has had a few episodes of right upper quadrant pain, vomiting. First time it started after she felt like a pill got stuck in her throat. Has happened a few times since then while eating. Has not choked. ELAINE Ragsdale [address] [place], [phone], [employer]. 06/06/2024 17:34:22 01/16/2025 text/html ROS as noted in the HPI Patient presents for followupWould like labworkNeeds to restart something for depression. Was on Prozac. Stopped that in July. Started Zoloft, then Prozac after losing her soon a few years ago. Thinks she should be able to just tough it out without meds but is not doing well.Has skin tags on her neck that she would like to have removed at some point. ELAINE Ragsdale [address] [place] [address], [phone], [employer]. 01/16/2025 12:59:52 OBGyn Episode No OBEpisode recorded.
--- OUTSIDE RECORDS SUMMARY | 2025-02-08 07:39 | XMS_ITS | Continuity of Care Document ---
Author Organization [place] - [address] [facility] Address [address] [address] Assessment No assessment recorded. Plan of Treatment Reminders Order Date Submit Date Provider Last Modified By Organization Details Last Modified Time Details Appointments None recorded. Lab vitamin D, 25-hydroxy, total, serum 2024 025 [facility] [place], [address], 5 09:09:37 lipid panel, serum 2024 025 [facility]), [address] [place] [address], [address], 5 09:09:35 TSH, ultra-sensi tive, serum 2024 025 [facility]), [address] [place] [address], [address], 5 09:09:36 Hepatitis C IgG Ab, qual, serum 2024 025 [facility]), [address] [place] [address], [address], 5 09:09:36 HIV 1 + 2, meaningful use set 2024 025 [facility] [place], [address], 09:09:37 CMP, serum or plasma 2024 025 [place] [address] [place], [address], 5 09:09:34 CBC w/ auto diff 2024 [place] [facility] ([place]), [address] [place], [address], 5 09:09:33 Referral None recorded. Procedures None recorded. Surgeries None recorded. Imaging MAMMO, screening, digital, bilateral [id number], [address], 14:53:27 Medication Orders Vraylar 1.5 mg capsule 2024 025 [id number], [address] [place], [address], 11:44:18 Patient TargetsNo targets recorded. Patient Instructions Encounter Date Encounter Id Patient Instructions Last Modified By Organization Details Last Modified Time 01/16/2025 [id number] mammogram: about this test [email or web address] Not available 01/16/2025 13:05:53 HIV testing: car e instructions [email or web address] Not available 01/16/2025 12:33:45 Reason for Referral None Reported. Results Created Date Observation Date Name Description Value Unit Range Abnormal Flag Note LastModifiedBy Organization Detail LastModifiedTime 01/17/2001/17/2025 CBC WITH DIFFE RENTI AL/PL ATELE T WBC 11.3 x10e3 /uL 3.4-10 .8 above high normal Not Available [facility] ([facility]) [address] [facility], [place], [address], 01/17/2025 09:09:33 01/17/2001/17/2025 CBC WITH DIFFE RENTI AL/PL ATELE T RBC 5.61 x10e6 /uL 3.77-5 .28 above high normal Not Available [facility] ([facility]) [address] [place], [address], 01/17/2025 09:09:33 01/17/2001/17/2025 CBC WITH DIFFE RENTI AL/PL ATELE T hemoglobin 16.4 g/dL 11.1-1 5.9 above high normal Not Available [facility] ([facility]) [address] [place], [address], 01/17/2025 09:09:33 01/17/2001/17/2025 CBC WITH DIFFE RENTI AL/PL ATELE T hematocrit 49.5 % 34.0-4 6.6 above high normal Not Available [facility] ([facility]) [address] [place], [address], 01/17/2025 09:09:33 01/17/2001/17/2025 CBC WITH DIFFE RENTI AL/PL ATELE T MCV 88 fL 79-97 normal Not Available [facility] ([facility]) [address] [place], [address], 01/17/2025 09:09:33 01/17/2001/17/2025 CBC WITH DIFFE RENTI AL/PL ATELE T MCH 29.2 pg 26.6-3 3.0 normal Not Available [facility] ([facility]) [address] [place], [address], 01/17/2025 09:09:33 01/17/2001/17/2025 CBC WITH DIFFE RENTI AL/PL ATELE T MCHC 33.1 g/dL 31.5-3 5.7 normal Not Available [facility] ([facility]) [address] [place], [address], 01/17/2025 09:09:33 01/17/2001/17/2025 CBC WITH DIFFE RENTI AL/PL ATELE T RDW 12.6 % 11.7-1 5.4 Not Available [facility] ([facility]) [address] [facility] [place], [address], 01/17/2025 09:09:33 01/17/2001/17/2025 CBC WITH DIFFE RENTI AL/PL ATELE T platelets 429 x10e3 /uL 150-45 0 normal Not Available [facility] ([facility]) [address] [facility] [place], [address], 01/17/2025 09:09:33 01/17/2001/17/2025 CBC WITH DIFFE RENTI AL/PL ATELE T neutrophils 48 % not estab. normal Not Available [facility] ([facility]) [address] [facility] [place], [address], 01/17/2025 09:09:33 01/17/2001/17/2025 CBC WITH DIFFE RENTI AL/PL ATELE T lymphs 40 % not estab. normal Not Available [facility] ([facility]) [address] [facility] [place], [address], 01/17/2025 09:09:33 01/17/2001/17/2025 CBC WITH DIFFE RENTI AL/PL ATELE T monocytes 8 % not estab. normal Not Available [facility] ([facility]) [address] [facility] [place], [address], 01/17/2025 09:09:33 01/17/20 25 01/17/2025 CBC WITH DIFFE RENTI AL/PL ATELE T eos 3 % not estab. normal Not Available [facility] ([facility]) [address] [facility] [place], [address], 01/17/2025 09:09:33 01/17/20 25 01/17/2025 CBC WITH DIFFE RENTI AL/PL ATELE T basos 1 % not estab. 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 0 normal Not Available [facility] ([facility]) [address] [facility] [place], [address], 01/17/2025 09:09:33 01/17/20 25 01/17/2025 CBC WITH DIFFE RENTI AL/PL ATELE T lymphs (absolute) 4.5 x10e3 /uL 0.7-3. 1 above high normal Not Available [facility] ([facility]) [address] [place], [address], 01/17/2025 09:09:33 01/17/20 25 01/17/2025 CBC WITH DIFFE RENTI AL/PL ATELE T monocytes(ab solute) 0.9 x10e3 /uL 0.1-0. 9 normal Not Available [facility] ([facility]) [address] [place], [address], 01/17/2025 09:09:33 01/17/20 25 01/17/2025 CBC WITH DIFFE RENTI AL/PL ATELE T eos (absolute) 0.4 x10e3 /uL 0.0-0. 4 normal Not Available [facility] ([facility]) [address] [place], [address], 01/17/2025 09:09:33 01/17/20 25 01/17/2025 CBC WITH DIFFE RENTI AL/PL ATELE T baso (absolute) 0.1 x10e3 /uL 0.0-0. 2 normal Not Available [facility] ([facility]) [address] [facility] [place], [address], 01/17/2025 09:09:33 01/17/20 25 01/17/2025 CBC WITH DIFFE RENTI AL/PL ATELE T immature granulocytes 0 % not estab. Not Available [facility] ([facility]) [address] [facility] [place], [address], 01/17/2025 09:09:33 01/17/20 25 01/17/2025 CBC WITH DIFFE RENTI AL/PL ATELE T immature grans (abs) 0.0 x10e3 /uL 0.0-0. 1 Not Available [facility] ([facility]) [address] [facility] [place], [address], 01/17/2025 09:09:33 01/17/20 25 01/17/2025 CBC WITH DIFFE RENTI AL/PL ATELE T NRBC 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 OPERATOR Not Available [facility] ([facility]) [address] [facility] [place], [address], 01/17/2025 09:09:33 01/17/20 25 01/17/2025 CBC WITH DIFFE RENTI AL/PL ATELE T hematology comments: 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 OPERATOR Not Available [facility] ([facility]) [address] [facility] [place], [address], 01/17/2025 09:09:33 01/17/20 25 01/17/2025 COMP. METAB OLIC PANEL (14) glucose 83 mg/dL 70-99 normal Not Available [facility] ([facility]) [address] [facility] [place], [address], 01/17/2025 09:09:34 01/17/20 25 01/17/2025 COMP. METAB OLIC PANEL (14) BUN 12 mg/dL 6-24 normal Not Available [facility] ([facility]) [address] [facility] [place], [address], 01/17/2025 09:09:34 01/17/20 25 01/17/2025 COMP. METAB OLIC PANEL (14) creatinine 0.79 mg/dL 0.57-1 .00 normal Not Available [facility] ([facility]) [address] [place], [address], 01/17/2025 09:09:34 01/17/20 25 01/17/2025 COMP. METAB OLIC PANEL (14) eGFR 89 mL/mi n/1.7 3 >59 normal Not Available [facility] ([facility]) [address] [facility] [place], [address], 01/17/2025 09:09:34 01/17/20 25 01/17/2025 COMP. METAB OLIC PANEL (14) BUN/creatini ne ratio 15 9-23 normal Not Available [facility] ([facility]) [address] [facility] [place], [address], 01/17/2025 09:09:34 01/17/20 25 01/17/2025 COMP. METAB OLIC PANEL (14) sodium 139 mmol/ L 134-14 4 normal Not Available [facility] ([facility]) [address] [facility] [place], [address], 01/17/2025 09:09:34 01/17/20 25 01/17/2025 COMP. METAB OLIC PANEL (14) potassium 4.4 mmol/ L 3.5-5. 2 normal Not Available [facility] ([facility]) [address] [facility] [place], [address], 01/17/2025 09:09:34 01/17/20 25 01/17/2025 COMP. METAB OLIC PANEL (14) chloride 104 mmol/ L 96-106 normal Not Available [facility] ([facility]) [address] [facility] [place], [address], 01/17/2025 09:09:34 01/17/20 25 01/17/2025 COMP. METAB OLIC PANEL (14) carbon dioxide, total 18 mmol/ L 20-29 below low normal Not Available [facility] ([facility]) [address] [place], [address], 01/17/2025 09:09:34 01/17/20 25 01/17/2025 COMP. METAB OLIC PANEL (14) calcium 9.6 mg/dL 8.7-10 .2 normal Not Available [facility] ([facility]) [address] [place], [address], 01/17/2025 09:09:34 01/17/20 25 01/17/2025 COMP. METAB OLIC PANEL (14) protein, total 7.2 g/dL 6.0-8. 5 normal Not Available [facility] ([facility]) [address], [address], 01/17/2025 09:09:34 01/17/20 25 01/17/2025 COMP. METAB OLIC PANEL (14) albumin 4.1 g/dL 3.8-4. 9 normal Not Available [facility] ([facility]) [address] [facility] [place], [address], 01/17/2025 09:09:34 01/17/20 25 01/17/2025 COMP. METAB OLIC PANEL (14) globulin, total 3.1 g/dL 1.5-4. 5 Not Available [facility] ([facility]) [address], [address], 01/17/2025 09:09:34 01/17/20 25 01/17/2025 COMP. METAB OLIC PANEL (14) bilirubin, total 0.4 mg/dL 0.0-1. 2 normal Not Available [facility] ([facility]) [address] [facility] [place], [address], 01/17/2025 09:09:34 01/17/20 25 01/17/2025 COMP. METAB OLIC PANEL (14) alkaline phosphatase 131 IU/L 49-135 normal Not Available [facility] ([facility]) [address] [place], [address], 01/17/2025 09:09:34 01/17/20 25 01/17/2025 COMP. METAB OLIC PANEL (14) AST (SGOT) 73 IU/L 0-40 above high normal Not Available [facility] ([facility]) [address] [place], [address], 01/17/2025 09:09:34 01/17/20 25 01/17/2025 COMP. METAB OLIC PANEL (14) ALT (SGPT) 101 IU/L 0-32 above high normal Not Available [facility] ([facility]) [address] [place], [address], 01/17/2025 09:09:34 01/17/20 25 01/17/2025 LIPID PANEL cholesterol, total 234 mg/dL 100-19 9 above high normal Not Available [facility] ([facility]) [address] [place], [address], 01/17/2025 09:09:35 01/17/20 25 01/17/2025 LIPID PANEL triglyceride s 162 mg/dL 0-149 above high normal Not Available [facility] ([facility]) [address] [place], [address], 01/17/2025 09:09:35 01/17/20 25 01/17/2025 LIPID PANEL HDL cholesterol 45 mg/dL >39 normal Not Available [facility]) [address] [place], [address], 01/17/2025 09:09:35 01/17/20 25 01/17/2025 LIPID PANEL VLDL cholesterol denilson 30 mg/dL 5-40 Not Available [facility] ([facility]) [address] [facility] [place], [address], 01/17/2025 09:09:35 01/17/2001/17/2025 LIPID PANEL LDL chol calc ([facility]) 159 mg/dL 0-99 above high normal Not Available [facility] ([facility]) [address] [facility] [place], [address], 01/17/2025 09:09:35 01/17/20 25 01/17/2025 LIPID PANEL LDL calc comment: 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 Not Available [facility] ([facility]) [address] [facility] [place], [address], 01/17/2025 09:09:35 01/17/20 25 01/17/2025 HCV ANTIB AYALA CASCA DE(PC R/GEN O) HCV Ab Non Reacti ve non reacti ve Not Available [facility] ([facility]) [address] [facility] [place], [address], 01/17/2025 09:09:36 01/17/20 25 01/17/2025 HCV ANTIB AYALA CASCA DE(PC R/GEN O) interpretati on: Commen t Not infec allen with HCV unles s early or acute infec tion is suspe cted (whic h may be delay ed in an immun ocomp romis ed indiv idual ), or other evide nce exist s to indic ate HCV infec tion. Not Available [facility] ([facility]) [address] [facility] [place], [address], 01/17/2025 09:09:36 01/17/2001/17/2025 TSH TSH 1.370 uIU/m L 0.450- 4.500 normal Not Available [facility] ([facility]) [address] [facility] [place], [address], 01/17/2025 09:09:36 01/17/20 25 01/17/2025 VITAM IN [...] IOM (Inst itute of Medic ine). 2010. Dieta ry refer ence intak es for calci um and D. Elliot crowe [place]: The [facility] . 2. Anil samuels [place], Nenita reyes [place], Emiliano off-F carlos i MORRISON, et al. Evalu ation , treat ment, and preve ntion of vitam in D defic iency : an Endoc rine Socie ty clini denilson pract ice guide line. JCEM. 2010; 96(7) :1911 -30. Not Available [facility] ([facility]) [address] [facility] [place], [address], 01/17/2025 09:09:36 01/17/20 25 01/17/2025 HIV AB/P2 4 AG WITH REFLE X HIV Ab/P24 Ag screen Non Reacti ve non reacti ve HIV Negat ashley HIV-1 /HIV- 2 antib odies and HIV-1 p24 antig en were NOT detec allen. There is no labor atory evide nce of HIV infec tion. Not Available [facility] ([facility]) [address] [facility] [place], [address], 01/17/2025 09:09:37 Result Notes None recorded. Problems Name Problem SNOMED Code Status Onset Date Resolution Date Notes Provider Name and Address Organization Details Recorded Time Right upper quadrant pain 846662790 Active 2024 ELAINE Ragsdale [address] [place] [address], [address], [employer] [facility]. 11:39:45 Mixed anxiety and depressive disorder 867734756 Active 2024 ELAINE Ragsdale [address] [place] [address], [address] 8, [employer] 11:44:00 Vitamin D deficiency 82894184 Active 2024 ELAINE Ragsdale [address] [place] [address], [address] 8, [employer] 16:00:45 Secondary polycythemia 96349147 Active 2024 ELAINE Ragsdale [address] [place] [address], [address] 8, [employer] 16:00:56 Mixed hyperlipidemia 676326433 Active 2024 ELAINE Ragsdale [address] [place] [address], [address] 8, [employer] 16:01:05 Problem Notes None recorded. Procedures Surgical History Date Name Laterality Status Provider Name and Address Organization Details Recorded Time 07/15/19 25 laparoscopic cholecystectomy completed [facility] [employer]. 01/16/2025 08:17:04 12/23/19 18 Most Recent Mammogram completed [employer]. 06/06/2024 11:12:16 Appendectomy completed [employer]. 06/06/2024 11:12:17 Imaging Results None recorded. Procedure Notes None recorded. Medical Equipment None Reported. Allergies Allergen ID Allergen Name Allergen Category Reaction Reaction Severity Criticality Documentation Date Start Date Code Code System Note Provider Name and Address Organization Details Recorded Time 63489 Substance with sulfonami de structure and antibacte rial mechanism of action (substanc e) medicatio n itching other rash Not available Not available Not available Not available 06/06/2024 80942 8003 SNOMED Patrizia Castillo [facility] [employer] 11:12:16 Medications Name Sig Start Date Stop [...] Last Updated DateTime 172.72 cm 40.6 kg/m2 561182. 44 g 95 % 74 /min 98.2 [degF] 134/84 mm[Hg] Anastasia Ramirez [employer] 11:29:07 Social History Question Answer Notes LastModified by Organizat ion Details LastModified Time Tobacco Smoking Status Current Every Day Smoker Patrizia bethea [employer] 06/06/2024 11:12:16 Do You Have An Advance Directive? No [email or web address] Information not available 06/06/2024 Is Your Home Air Conditioned? Yes [email or web address] Information not available 06/06/2024 If You Are , What Was Your Level Of Alcohol Consumption Prior To ? None [email or web address] Information not available 06/06/2024 How Many Years Have You Consumed Alcohol? 15 Information not available 06/06/2024 Do You Wear A Helmet When Biking? No Information not available 06/06/2024 What Is Your Level Of Caffeine Consumption? Moderate [email or web address] Information not available 06/06/2024 Are You A Caregiver? No Information not available 01/16/2025 What Type Of Casino Games Dealer Do You Use? None [email or web address] Information not available 06/06/2024 In The 14 Days Before Symptom Onset, Have You Had Close Contact With A Laboratory-confi rmed COVID-19 While That Case Was Ill? No [email or web address] Information not available 06/06/2024 In The 14 Days Before Symptom Onset, Have You Had Close Contact With A Person Who Is Under Investigation For COVID-19 While That Person Was Ill? No Information not available 06/06/2024 Have You Been To An Area Known To Be High Risk For COVID-19? No Information not available 06/06/2024 What Type Of Diet Are You Following? REGULAR [email or web address] Information not available 06/06/2024 What Is The Highest Grade Or Level Of School You Have Completed Or The Highest Degree You Have Received? [id number] [email or web address] Information not available 06/06/2024 Who Is Your Employer? [employer] [email or web address] Information n ot available 06/06/2024 How Many Days Of Moderate To Strenuous Exercise, Like A Brisk Walk, Did You Do In The Last 7 Days? 3 [email or web address] Information not available 06/06/2024 On Those Days That You Engage In Moderate To Strenuous Exercise, How Many Minutes, On Average, Do You Exercise? 20 Information not available 01/16/2025 Have There Been Any Changes To Your Family Or Social Situation? No Information not available 01/16/2025 Are There Any Guns Present In Your Home? Yes [email or web address] Information not available 06/06/2024 Which Of Your Hands Is Dominant? Right [email or web address] Information not available 06/06/2024 Do You Engage In Moderate/heavy Exercise (e.g. Brisk Walk, Jogging, Strength Training, Etc)? Yes Information not available 01/16/2025 What Is Your Home Situation? Relatives [email or web address] Information not available 06/06/2024 How Many Times In The Past Year Have You Used An Illegal Drug Or Used A Prescription Medication For Nonmedical Reasons? 0 Information not available 01/16/2025 Where [facility] You Live? [facility] Information not available 01/16/2025 Do You Have A Medical Power Of Mechanical Systems Design Engineer? No [email or web address] Information not available 06/06/2024 What Was The Date Of Your Most Recent Tobacco Screening? 01/16/2025 Information not available 01/16/2025 Are There Any Occupational Health Risks Where You Work? No [email or web address] Information not available 06/06/2024 What Is Your Current Pack Years? [email or web address] Information not available 01/16/2025 Have You Ever Been Counseled For Unhealthy Alcohol Use? No Information not available 01/16/2025 Do You Have Any Pets? Yes [email or web address] Information not available 06/06/2024 Do You Use Protection During Sex? No [email or web address] Information not available 06/06/2024 What Is Your Relationship Status? [email or web address] Information not available 06/06/2024 Have You Repeated Any Grades? No [email or web address] Information not available 06/06/2024 Do You Wear A Seatbelt When Driving Or As A Passenger? Yes Information not available 01/16/2025 Do You Use Your Seat Belt Or Car Seat Routinely? Yes [email or web address] Information not available 06/06/2024 Are You Sexually Active? No Information not available 01/16/2025 Do You Have Any Siblings? Yes [email or web address] Information not available 06/06/2024 Do You Have Smoke And Carbon Monoxide Detectors In Your Home? No [email or web address] Information not available 06/06/2024 At What Age Did You Start Smoking Tobacco? 15 [email or web address] Information not available 06/06/2024 Are You Passively Exposed To Smoke? Yes Information not available 01/16/2025 Are There Any Smokers In Your House? Yes [email or web address] Information not available 06/06/2024 How Much Tobacco Do You Smoke? 0.5 PPD [email or web address] Information not available 06/06/2024 What Types Of Sporting Activities Do You Participate In? Water [email or web address] Information not available 06/06/2024 Do You Use Sunscreen Routinely? Yes [email or web address] Information not available 06/06/2024 Has Tobacco Cessation Counseling Been Provided? Yes Information not available 01/16/2025 On What Date Was Tobacco Cessation Counseling Provided? 01/16/2025 Information not available 01/16/2025 How Many Years Have You Smoked Tobacco? 35 [email or web address] Information not available 06/06/2024 Have You Recently Traveled Abroad? No [email or web address] Information not available 06/06/2024 Do You Have Difficulty Walking Or Climbing Stairs? Yes [email or web address] Information not available 06/06/2024 What Contraceptive Method Was Reported At Start Of This Visit? None Information not available 01/16/2025 Do You Feel Safe In Your Home? Yes Information not available 01/16/2025 Do You Have Any Dietary Restrictions? No Information not available 01/16/2025 How Many Days In The Past Year Have You Consumed 4 Or More Drinks? 10 [email or web address] Information not available 06/06/2024 What Is Your [...] or have you ever used smokeless tobacco? [id number] Information n ot available 01/16/2025 Are you currently employed? Yes [email or web address] Information not available 06/06/2024 Do you have transportation difficulties? No Information not available 01/16/2025 Are you able to care for yourself independently? Yes Information not available 06/06/2024 Do you have difficulty dressing, bathing, grooming, or toileting? No [email or web address] Information not available 06/06/2024 Do you or have you ever used e-cigarettes or vape? Former user of electronic cigarettes Information not available 01/16/2025 What is your exercise level? Occasional [email or web address] Information not available 06/06/2024 Do you use any illicit or recreational drugs? No [email or web address] Information not available 06/06/2024 Do you feel safe in your relationship? Yes Information not available 01/16/2025 Do you or have you ever used any other forms of tobacco or nicotine? Yes Information not available 01/16/2025 What is your level of alcohol consumption? Occasional [email or web address] Information not available 06/06/2024 Are you able to walk independently without assistance or assistive devices? YESWOREST [email or web address] Information not available 06/06/2024 Do you have difficulty doing errands alone? No [email or web address] Information not available 06/06/2024 Mental Status Question Answer Note LastModified by Organizat ion Details LastModified Time Do you feel stressed (tense, restless, nervous, or anxious, or unable to sleep at night)? [id number] Information not available 01/16/2025 Do you have difficulty concentrating, remembering or making decisions? No [email or web address] Information no t available 06/06/2024 Are you or have you been involved with bullying? No [email or web address] Information not available 06/06/2024 Family History Relationship Description Onset Age of this Age Resolved Age Notes LastModified by Organization Details LastModified Time Paternal Grandmother Hypercholest erolemia [email or web address] Not available 2024 11:12:16 Paternal Grandmother Hypertensive disorder Not available 2024 11:12:16 Mother Arthritis [email or web address] Not availab le 06/06/2024 11:12:16 Brother Hypercholest erolemia [email or web address] Not available 2024 11:12:16 Brother Hypertensive disorder [email or web address] Not available 2024 11:12:16 Brother Heart disease [email or web address] Not available 2024 11:12:16 Sister Hypercholest erolemia Not available 2024 11:12:16 Sister Malignant neoplasm of breast [id number] Not available 2024 11:12:16 Sister Arthritis [email or web address] Not availab le 06/06/2024 11:12:16 Sister Hypertensive disorder [email or web address] Not available 2024 11:12:16 Sister Heart disease [email or web address] Not available 2024 11:12:16 Paternal Grandfather Heart disease Not available 2024 11:12:16 Father Hypercholest erolemia [id number] Not available 2024 11:12:16 Father Hypertensive disorder Not available 2024 11:12:16 Father Heart disease [email or web address] Not available 2024 11:12:16 Medical History Condition Response Coronary Artery Disease N Gout N Other N Blood Diseases N Kidney Stones N Hyperthyroidism N Blood Transfusion N Breast Cancer N Emergency room visit since last appointm ent. N COPD N Depression Y Dermatologic Disorders N Lung Disease N Hypothyroidism N Defects or Inherited Disease N Developmental or Behavioral Disorders N Breast Problem N Difficulty Swallowing N Anesthesia Complications N History of STI N Meniere's disease N Anxiety Disorder Y Muscle, Joint, or Bone Problems N Autoimmune disease N Obesity Y Vision or Eye Problems N Arthritis N Polyps N Infertility N Mental Disorder N Congenital Anomalies N Acid Reflux (GERD) N Cancer N Stroke N Neurologic/Epilepsy N Endometriosis N Bladder or Kidney Problems N High Cholesterol N Liver Disease N Psychiatric/Mental Health Condition N Organ Transplant N Headaches N Schizophrenia N Dialysis N Fibromyalgia N Kidney Disease N Allergies/Hayfever N Heart [...] mcg/0.3 mL dose 06/21/2020 completed Not Available [facility] 5 11:19:51 COVID-19, mRNA, LNP-S, PF, 30 mcg/0.3 mL dose 07/12/2020 completed Not Available [facility] 5 11:19:51 Past Encounters Encounter ID Performer Location Encounter Start Date Encounter Closed Date Diagnosis/Indication Diagnosis SNOMED-CT Code Diagnosis ICD10 Code Diagnosis IMO Codes Diagnosis Note [id number] ELAINE Ragsdale [facility] [address] [place] [address] [phone] 01/16/2025 11:18:50 01/16/2025 12:12:22 Mixed anxiety and depressive disorder 424291811 F41.9 F32.A 241495 Grief reaction to loss of son - trial Vraylar (samples given) HIV screening 921014593 Z11.4 558776 Viral scre ening status 208965603 Z11.59 844146 Screening mammography 24 477762 Z12.31 30796541 Hyperlipid emia screening 512339639 Z13.220 055119 Thyroid di sorder screening 410787388 Z13.29 89295 Screening for disorder 743522711 Z13.21 54795808 Health Concerns Section Related Observation LastModified by Organization Detai ls LastModified Time None Recorded Concern Status LastModified by Organization Details LastModified Time None Recorded Payers Encounter Date Sequence Insurance Name Policy Number Policy Vu Covered Member ID Vu Member ID Guarantor Name 01/16/2025 1 [employer] Jemal Pabon [id number] Jemal Pabon Notes Date Note Type Note Provider Name and Address Organization Details Recorded Time 01/16/2025 text/html ROS as noted in the [...] have removed at some point. ELAINE Ragsdale [address] [place] [address], [phone], [place] - [employer] 01/16/2025 12:59:52 OBGyn Episode No OBEpisode recorded.
== END 2025-02-08 23:59 | disposition home or self-care (01) ==
LOC: RAD 07:37
PROVIDERS: PCP Physician Assistant; Visit Provider Physician Assistant
DX: Z12.31 Encounter for screening mammogram for malignant neoplasm of breast (principal); R92.323 Mammographic fibroglandular density, bilateral breasts; N63.20 Unspecified lump in the left breast, unspecified quadrant; N63.10 Unspecified lump in the right breast, unspecified quadrant
CPT/HCPCS: 77063; 77067